=== PATIENT | female | born 1940 | race Caucasian/White ===

== ENCOUNTER 2017-01-18 08:17 | Inpatient (IN) | payer OTHER ==
[2016-12-20 13:16] VITALS: BMI 34.0
--- NOTE | 2016-12-20 13:55 | PAT Medication Instructions ---
Service Date Dec 20, 2016. Current Home Medication List Acetaminophen (Tylenol), 1 TAB PO Q8 PRN for prn Aspirin (Aspirin), 325 MG PO QAM Carvedilol (Coreg), 25 MG PO BID Clonidine Hcl (Catapres), 1 TAB PO BID Hydrochlorothiazide (Hctz), 25 MG PO BID Lisinopril (Zestril), 10 MG PO QAM Multivitamin (Multivitamin), 1 TAB PO QAM Medication Instructions For Your Scheduled Surgery - Check with surgeon for instructions: Aspirin (Aspirin), 325 MG PO QAM - Hold the following medications the morning of surgery: Hydrochlorothiazide (Hctz), 25 MG PO BID Lisinopril (Zestril), 10 MG PO QAM Multivitamin (Multivitamin), 1 TAB PO QAM - Take the following medications the morning of surgery with a sip of water: Clonidine Hcl (Catapres), 1 TAB PO BID Carvedilol (Coreg), 25 MG PO BID Acetaminophen (Tylenol), 1 TAB PO Q8 PRN for prn (if needed) - Take the following medications as scheduled the night before surgery: Hydrochlorothiazide (Hctz), 25 MG PO BID Clonidine Hcl (Catapres), 1 TAB PO BID Carvedilol (Coreg), 25 MG PO BID Acetaminophen (Tylenol), 1 TAB PO Q8 PRN for prn (if needed) If you have any questions please call us at [phone] or [phone] or [phone]
[2016-12-20 14:43] LABS: BASO % 0.6 %; BASO ABS # 0.04 K/uL (0-0.2); COMPLETE YES; EOS % 1.7 %; HEMATOCRIT 36.7 % (37-47); IG% 0.1 %; LYMPH % 28.7 %; LYMPH ABS # 2.05 K/uL (1.2-3.4); MEAN CELL VOLUME 87.4 fL (80-100); MEAN CORPUSCULAR HEMOGLOBIN 27.9 pg (25-34); MEAN CORPUSCULAR HGB CONC 31.9 g/dl (32-36); MEAN PLATELET VOLUME 10.8 fL (7.4-10.4); MONO % 12.6 %; NEUT % 56.3 %; PLATELET COUNT 241 K/uL (130-400); WHITE BLOOD COUNT 7.14 K/uL (4.8-10.8)
--- NOTE | 2016-12-20 14:50 | DIAGNOSTIC IMAGING REPORT ---
CHEST PREADMISSION(PA/LAT) HISTORY:76 yearsFemalepreoperative exam. COMPARISON: None available. TECHNIQUE: Frontal and lateral views of the chest. FINDINGS: Cardiac silhouette is enlarged. Note is made of pectus excavatum deformity. There is atherosclerosis of the aorta. No pneumothorax, large pleural effusion or overt pulmonary edema. No focal airspace consolidation. Advanced degenerative changes are seen involving the shoulders. There is increased kyphotic curvature of the thoracic spine. IMPRESSION: Cardiomegaly without overt pulmonary edema or acute cardiopulmonary process. The above report was generated using voice recognition software. It may contain grammatical, syntax or spelling errors. Electronically signed by: Grabiel Bauer 12/20/2016 2:49 PM Dictated Date/Time: 12/20/2016 2:47 PM
[2016-12-20 14:58] LABS: ESTIMATED AVERAGE GLUCOSE 114 mg/dl; HA1C FLAG Normal (Normal); PROTHROMBIN TIME (PATIENT) 10.7 SECONDS (9.0-12.0)
--- NOTE | 2016-12-20 15:52 | History and Physical ---
History & Physical Date Dec 20, 2016. Chief Complaint Left Knee Pain History of Present Illness Left Knee pain Ms Ward is a 76 year old female who complains of knee pain on the left greater than the right. She presents with pain, crepitus and decreased rom on the left greater than the right. She states that the symptoms have been chronic non- traumatic. The symptoms occur constantly with intermittent worsening. The problem is worse. Currently the patient states that the symptoms are moderate- severe. The pain is described as aching and throbbing. The symptoms occur continuously. The symptoms are aggravated by daily activities, ascending stairs , descending stairs, weight bearing and walking. In addition to knee pain on the left greater than the right the patient is also experiencing decreased mobility, joint pain and limping. The patient has had a previous x-ray. She has had Ambulates with cane. Past Medical/Surgical History Hypertension No previous surgeries Additional History Hepatic Disease: No Endocrine Disorder: No Kidney Disease: No Hypertension: Yes Heart Disease: No Bleeding Tendencies: No Allergies Coded Allergies: Onion (Verified Allergy, Unknown, very sick, 12/20/16) Penicillins (Verified Allergy, Unknown, hives/nausea, 12/20/16) Home Medications Scheduled Aspirin (Aspirin), 325 MG PO QAM Carvedilol (Coreg), 25 MG PO BID Clonidine Hcl (Catapres), 1 TAB PO BID Hydrochlorothiazide (Hctz), 25 MG PO BID Lisinopril (Zestril), 10 MG PO QAM Multivitamin (Multivitamin), 1 TAB PO QAM Scheduled PRN Acetaminophen (Tylenol), 1 TAB PO Q8 PRN for prn Physical Examination Skin: warm/dry, no rash Eyes: normal inspection, EOMI, sclerae normal ENT: normal ENT inspection, pharynx normal Head: normocephalic, atraumatic Respiratory/Chest: lungs clear, normal breath sounds, no respiratory distress Cardiovascular: regular rate, rhythm, no edema, no murmur Addiitonal Comments: Knee ROM L * Active ROM - Flexion: 125 degrees, Extension: 5 degrees, Factors: pain, Description: active painful range of motion. Passive ROM - Flexion: 125 degrees, Extension: 5 degrees, Factors: pain, Description: passive painful range of motion. Active ROM - Flexion: 125 degrees, Extension: 5 degrees, Factors: pain, Description: active painful range of motion. Passive ROM - Flexion: 125 degrees, Extension: 5 degrees, Factors: pain, Description: passive painful range of motion. Knee ROM R * Active ROM - Flexion: 135 degrees, Extension: 0 degrees, Factors: pain, Description: active painful range of motion. Passive ROM - Flexion: 135 degrees, Extension: 0 degrees, Factors: pain, Description: passive painful range of motion. Active ROM - Flexion: 135 degrees, Extension: 0 degrees, Factors: pain, Description: active painful range of motion. Passive ROM - Flexion: 135 degrees, Extension: 0 degrees, Factors: pain, Description: passive painful range of motion. Strength LE Normal Strength Description - Normal lower extremity: Bilateral. Knee * Inspection - Gait: antalgic. Alignment - Right: varus, Left: varus. Ecchymosis - Right: negative, Left: negative. Effusion - Right: mild, Left: mild. Swelling - Right: mild, Left: mild. Inspection - Gait: antalgic. Alignment - Right: varus, Left: varus. Ecchymosis - Right: negative, Left: negative. Effusion - Right: mild, Left: mild. Swelling - Right: mild, Left: mild. Flexibility - Right: normal, Left: normal. Maximum tenderness - Right: medial joint line, lateral joint line, patella, Left: medial joint line, lateral joint line, patella. Flexibility - Right: normal, Left: normal. Maximum tenderness - Right: medial joint line, lateral joint line, patella, Left: medial joint line, lateral joint line, patella. Patella exam - Crepitation - Right: mild, Left: mild. Patella position - Right: neutral, Left: neutral. Tilt - Right: equal, Left: equal. Patella exam - Crepitation - Right: mild, Left: mild. Patella position - Right: neutral, Left: neutral. Tilt - Right: equal, Left: equal. Jen's - lateral - Right: Positive, Left: Positive. [facility]'s - medial - Right: Positive, Left: Positive. [facility]'s - lateral - Right: Positive, Left: Positive. [facility]'s - medial - Right: Positive, Left: Positive. Knee Comments No calf tenderness Knee Normal Inspection - Atrophy - Right: Absent, Left: Absent. Skin - Right: Normal, Left: Normal. Inspection - Atrophy - Right: Absent, Left: Absent. Skin - Right: Normal, Left: Normal. Patella exam - Apprehension - Right: Negative, Left: Negative. Q-angle - Right: Normal, Left: Normal. Patella exam - Apprehension - Right: Negative, Left: Negative. Q-angle - Right: Normal, Left: Normal. Seth's - Right: Negative, Left: Negative. Posterior drawer - Right: Negative, Left: Negative. Anterior drawer - Right: Negative, Left: Negative. Valgus stress - Right: Negative, Left: Negative. Varus stress - Right: Negative , Left: Negative. Extensor lag - Right: Normal, Left: Normal. Seth's - Right : Negative, Left: Negative. Posterior drawer - Right: Negative, Left: Negative. Anterior drawer - Right: Negative, Left: Negative. Valgus stress - Right: Negative, Left: Negative. Varus stress - Right: Negative, Left: Negative. Extensor lag - Right: Normal, Left: Normal. Neurovascular LE Normal Neurovascular examination including reflexes, sensation , and pulses is within normal limits. Left Knee X-Ray Xrays reviewed of the left knee showing findings consistent with degenerative joint disease including joint space narrowing, subchondral sclerosis and peripheral osteophyte formation. no acute bony pathology, overall varus alignment. Impression: degenerative joint disease of the left knee with no acute bony pathology noted. Diagnosis Left Knee Osteoarthritis -Further care discussed with patient and at this point in time has failed conservative measures and would like to proceed with a left total knee replacement. Plan on discharge will be home with outpatient physical therapy. DVT prophalaxis with TEDs, SCDs and will also place on aspirin 81 mg p.o. b.i.d. for a month postop. Patient will have follow up appointment in our office two weeks post op for staple/suture removal and re-evaluation. Patient otherwise has no other questions or concerns.
[2016-12-20 15:55] LABS: BUN/CREATININE RATIO 22.2 (10-20); CALCIUM 9.4 mg/dl (8.5-10.1); CREATININE 0.99 mg/dl (0.60-1.20); POTASSIUM 3.8 mmol/L (3.5-5.1)
[~2017-01-18] VITALS: Ht 162.6 cm; Wt 89.6 kg
[2017-01-18] VITALS (11 sets, daily range): BP systolic 123–176; BP diastolic 67–91; PULSE 56–83; TEMP 36–37; O2SAT 94–97; Ht 162.6 cm; Wt 89.6 kg
--- NOTE | 2017-01-18 06:58 | History & Physical Bridge Note ---
H&P Re-Evaluation Bridge Note: I have examined the patient, reviewed the History & Physical and in the interval since the performance of the History & Physical I have noted the following changes of clinical significance: No changes noted
[~2017-01-18 08:17] MED LIST: ACET-1256 PO; ACETAMINOPHEN 500 MG TAB PO SCH; ASPI325T4 PO; ATROPINE SULFATE 0.1 MG/ML 5ML SYR IV PRN; BUPIVACAINE 0.25% 30 ML VIAL ONE; BUPIVACAINE 0.5 % 5 MG/1 ML PF 10ML VIAL ONE; CARV25TA2 PO; CLINDAMYCIN 600 MG/54 ML D5W 54 ML IV SCH; CLON0.1T12 PO; CeleBREX 200 MG CAP PO SCH; DEXAMETHASONE 4 MG TAB PO SCH; EpHEDrine SULFATE INJ 50 MG/ML AMP IV PRN; FAMOTIDINE 20 MG TAB PO SCH; FENTANYL CITRATE INJ 50 MCG/1 ML 2 ML VIAL IV PRN; GABAPENTIN 300 MG CAP PO SCH; HYDR25TA4 PO; LACTATED RINGER'S 1000ML 1,000 ML IV SCH; LACTATED RINGER'S 1000ML 500 ML IV ONE; LACTATED RINGER'S 1000ML IV SCH; LISI-461 PO; METOCLOPRAMIDE HCL 10 MG TAB PO SCH; MULT-506 PO; ONDANSETRON INJ 2 MG/ML 2 ML VIAL IV PRN; ROPIVACAINE 5MG/ML 30 ML 150 MG, BUPIVACAINE/EPINEPHR 0.5% MPF 30 ML, KETOROLAC TROMETH... INFIL SCH
[2017-01-18] MEDS ORDERED: FENTANYL CITRATE INJ 50 MCG/1 ML 2 ML VIAL ONE (09:14)
[2017-01-18] MEDS ORDERED: MIDAZOLAM HCL 1 MG/ML 2ML VIAL ONE ×2 (09:14)
[2017-01-18] MEDS ORDERED: BACITRACIN 50000 UNIT VIAL ONE (09:53)
[2017-01-18] MEDS ORDERED: POVIDONE-IODINE OP SOLN 30 ML BTL ONE (09:53)
[2017-01-18] MEDS ORDERED: ORTHO JOINT ANESTHETIC ONE (09:53)
[2017-01-18] MEDS ORDERED: PROPOFOL IV EMULSION 10 MG/ML 20 ML VIAL IV ONE (10:49)
[2017-01-18] MEDS ORDERED: LIDOCAINE HCL 2% 2 ML VIAL (20MG/ML) ONE (10:49)
--- NOTE | 2017-01-18 11:54 | [facility] Operative Report ---
Operative Report Operative Date Jan 18, 2017. Pre-Operative Diagnosis Left Knee Degenerative Joint Disease Post-Operative Diagnosis Same as Preop Procedure(s) Performed Left Total Knee Arthroplasty utilizing [employer] journey 2 patient matched total knee arthroplasty size 4 femur to tibia 13 Meka 32 oval patella surgeon Brooks Gonzalez was necessary for prepping draping retraction wound closure defect is subcutaneous and skin Surgeon Dr. Guy Electric Razor Assembler Surgeon(s) Rd Gonzalez PA-C Estimated Blood Loss 5 ml Findings Severe end-stage tricompartmental degenerative joint disease with varus alignment Specimens A. Left Knee Bone and Tissue Complication(s) None Disposition Recovery Room / PACU Indications Severe end-stage DJD with varus alignment left knee Description of Procedure After proper prepping and draping of the left lower extremity anterior midline incision was made over the region of the extensor extensor mechanism after meticulous hemostasis was obtained and maintained in subcutaneous tissues a medial parapatellar incision was made The patella was subluxed lateralward the medial lateral gutter were cleaned from any hypertrophic synovitis and scar tissue of the distal femoral block was placed and the distal femoral osteotomy cut was made subsequently the chamfers anterior and posterior osteotomy cuts were made utilizing the 4-in-1 block the tibia was subsequently subluxed anteriorward medial and ateral meniscal remnants were excised in their entirety remnants of the anterior and posterior cruciate ligaments were excised in their entirety excellent exposure of the proximal tibia was obtained the tibial osteotomy guide was placed on the proximal tibial osteotomy cut was made once again the knee was irrigated with copious amounts of sterile saline solution the patella was subsequently everted lateralward thickened scar tissue around the patella was removed the patella was subsequently cut utilizing a freehand technique and was drilled prepared for final preparation and placement of patella socially flexion-extension gaps were checked and the equal and symmetric trials were placed to the appropriate femoral and tibial trials with poly-spacer being placed for equal flexion and extension gaps and full range of motion including extension to 0 and flexion to 140 the trial components after having been taken to recovery range of motion was subsequently removed meticulous hemostasis was obtained and maintained subsequently a knee block injection of joint cocktail including ropivacaine 0.5% 150 mg. Bupivacaine 0.5 % epinephrine 1-200,030 mL's toradol 30 mg dexamethasone 4 mg ketamine 10 mg clonidine 100 micrograms normal saline solution 30 mg was infiltrated into the soft tissues of the posterior knee medial lateral gutters and periosteal synovium special attention was paid to protect neurovascular structures at all times subsequently trial components having been removed the knee was irrigated with sterile saline solution. debris was removed the proximal tibia was subsequently prepared and was made ready for the placement of the tibial component tibial component was also cemented and tamped into position the femoral component was subsequently placed and cemented in the position the patellar component was subsequently cemented in position because hemostasis once again obtained and maintained wound having been thoroughly irrigated with debridement and debridement lavage was performed as well as a medial parapatellar incision closed with #1 Vicryl in interrupted fashion subcutaneous was closed with #2 Vicryl skin was closed with skin clips. PA-C was necessary for prepping and drapping as well as wound closure of deep fascia Sub cutaneous tissue and skin and was necessary for the case. A sterile compressive dressing was placed patient was taken to recovery in stable condition of report dictated by Brooks I attest to the content of the Intraoperative Record and any orders documented therein. Any exceptions are noted below. I attest to the content of the Intraoperative Record and any orders documented therein. Any exceptions are noted below.
[2017-01-18] MEDS ORDERED: ALUMINUM/MAGNESIUM/SIMETH (MAALOX MAX) 30 ML UDC PO PRN (12:30)
[2017-01-18] MEDS ORDERED: ONDANSETRON INJ 2 MG/ML 2 ML VIAL IV PRN (12:30)
[2017-01-18] MEDS ORDERED: BISACODYL 10 MG SUPP PR PRN (12:30)
[2017-01-18] MEDS ORDERED: SOD PHOSPHATE/SOD BIPHOSPHATE ENEMA 132 ML BTL PR PRN (12:30)
[2017-01-18] MEDS ORDERED: MAGNESIUM HYDROXIDE SUSP 30 ML UDC PO PRN (12:30)
[2017-01-18] MEDS ORDERED: OXYCODONE HCL IR 5 MG TAB (IMMEDIATE RELEASE) PO PRN (12:30)
[2017-01-18] MEDS ORDERED: KETOROLAC TROMETHAMINE 15 MG/ML VIAL IV. PRN (12:30)
[2017-01-18] MEDS ORDERED: MoRPHine SULFATE 2 MG/ML CARP IV PRN (12:30)
[2017-01-18] MEDS ORDERED: NURSING VERBAL MED ORDER ONE ×3 (12:45→13:30)
[2017-01-18] MEDS ORDERED: LABETALOL HCL IV 5 MG/ML 20ML IV ONE ×2 (12:47→13:08)
[2017-01-18] MEDS ORDERED: MoRPHine SULFATE 10 MG/ML CARP/VIAL IV PRN (13:00)
[2017-01-18] MEDS ORDERED: ATROPINE SULFATE 0.1 MG/ML 5ML SYR IV PRN (13:00)
[2017-01-18] MEDS ORDERED: LABETALOL HCL IV 5 MG/ML 20ML IV PRN (13:00)
[2017-01-18] MEDS ORDERED: EpHEDrine SULFATE INJ 50 MG/ML AMP IV PRN (13:00)
[2017-01-18] MEDS ORDERED: MoRPHine SULFATE 4 MG/ML 1 ML CARP\\VIAL IV PRN (13:00)
--- NOTE | 2017-01-18 13:08 | DIAGNOSTIC IMAGING REPORT ---
LEFT KNEE 1 OR 2 VIEWS ROUTINE CLINICAL HISTORY: Postoperative evaluation. COMPARISON: None FINDINGS: Alignment of the total left knee arthroplasty is anatomic. There is no fracture or unexpected radiopaque foreign body. Drains and skin marino are present. IMPRESSION: Expected findings following total left knee arthroplasty. Electronically signed by: Hardik Goddard M.D. 01/18/2017 1:06 PM Dictated Date/Time: 01/18/2017 1:06 PM
[2017-01-18] MEDS ORDERED: HydrALAZINE HCL 20 MG/ML VIAL ONE (13:24)
[2017-01-18] MEDS ORDERED: LABETALOL HCL IV 5 MG/ML 20ML IV STA (13:28)
--- NOTE | 2017-01-18 14:03 | Anesthesiology Progress Note ---
Anesthesia Post Op Note Date & Time Jan 18, 2017 at 14:00 Vital Signs Pain Intensity: 0 Vital Signs Past 12 Hours Date Time Temp Pulse Resp B/P (MAP) Pulse Ox O2 Delivery O2 Flow Rate FiO2 01/18/17 13:40 68 14 156/72 97 Oxymask 2 01/18/17 13:30 62 16 160/78 98 Oxymask 2 01/18/17 13:20 60 16 192/86 98 Oxymask 2 01/18/17 13:10 52 16 190/88 98 Oxymask 2 01/18/17 13:00 36.1 64 16 203/99 98 Oxymask 2 01/18/17 12:50 64 16 198/101 99 Oxymask 3 01/18/17 12:40 65 16 224/110 99 Oxymask 3 01/18/17 12:30 63 16 184/88 99 Oxymask 5 01/18/17 12:21 36.5 63 16 166/80 99 Oxymask 10 01/18/17 08:46 36.0 59 20 97 Room Air Notes Mental Status: alert / awake / arousable, participated in evaluation Pt Amnestic to Procedure: Yes Nausea / Vomiting: adequately controlled Pain: adequately controlled Airway Patency, RR, SpO2: stable & adequate BP & HR: stable & adequate Hydration State: stable & adequate Neuraxial Anesthesia: was administered, sensory block is resolving Anesthetic Complications: no major complications apparent Ms. Ward has known difficult to control BP. She is on quadruple therapy and appropriately took her meds before surgery (held her diuretics). Patient was asymptomatic but hypertensive preoperatively but after she was slightly sedated and during the case with SAB and sedation SBP's were 150's. In recovery room, her BP's increased to low 200's systolic but again asymptomatic. She was treated with labetalol and hydralazine with BP back into 150-160 range. I decided to consult hospitalist to assist orthopedics with BP control while she was an inpatient. Spoke briefly with hospitalist on-call and he said his team would see patient on floor, which I felt it was best to be telemetry. Surgeon's team (LARRY) was made aware of the consult and agreed with plan. All questions answered.
[2017-01-18] MEDS: D5W AND 1/2NSS + 20MEQ KCL 1,000 ML IV SCH (16:53)
--- NOTE | 2017-01-18 17:21 | Progress Note ---
Subjective Date of Service: Jan 18, 2017. Subjective Pt evaluation today including: conversation w/ patient, conversation w/ family , physical exam, chart review, lab review, review of inpatient medication list asked to see for HTN post op TKA - notes she was nervous because this was her first surgery ever. notes otherwise she feels fine. not much knee pain, no chest pain no sob. only took her coreg this AM. Review of Systems all other ROS otherwise negative except for as above Objective Vital Signs Date Time Temp Pulse Resp B/P (MAP) Pulse Ox O2 Delivery O2 Flow Rate FiO2 01/18/17 17:06 83 154/80 (104) 97 Nasal Cannula 01/18/17 15:30 36.3 80 14 141/72 96 Oxymask 2 01/18/17 15:15 72 14 126/66 96 Oxymask 2 01/18/17 15:15 37.0 80 176/81 (112) 95 Nasal Cannula 2.0 01/18/17 15:00 73 14 138/64 96 Oxymask 2 01/18/17 14:45 73 14 131/71 96 Oxymask 2 01/18/17 14:30 72 14 126/63 96 Oxymask 2 01/18/17 14:15 76 14 153/77 97 Oxymask 2 01/18/17 14:00 72 14 157/76 97 Oxymask 2 01/18/17 13:50 70 14 156/75 97 Oxymask 2 01/18/17 13:40 68 14 156/72 97 Oxymask 2 01/18/17 13:30 62 16 160/78 98 Oxymask 2 01/18/17 13:20 60 16 192/86 98 Oxymask 2 01/18/17 13:10 52 16 190/88 98 Oxymask 2 01/18/17 13:00 36.1 64 16 203/99 98 Oxymask 2 01/18/17 12:50 64 16 198/101 99 Oxymask 3 01/18/17 12:40 65 16 224/110 99 Oxymask 3 01/18/17 12:30 63 16 184/88 99 Oxymask 5 01/18/17 12:21 36.5 63 16 166/80 99 Oxymask 10 01/18/17 08:46 36.0 59 20 97 Room Air Physical Exam General Appearance: no apparent distress Eyes: EOMI ENT: hearing grossly normal Neck: trachea midline Respiratory/Chest: no respiratory distress, no accessory muscle use Extremities: + pertinent finding (L knee dressed, wrapped, iced) Neurologic/Psychiatric: engineering clerk II-XII nml as tested, alert, normal mood/affect Skin: normal color, warm/dry Assessment and Plan HTN -briefly uncontrolled but also didn't take all her meds that she normally takes , and notes was nervous -right now reasonable control given circumstances -coreg and clonidine have been ordered, agree w this, as long as hemodynamically remains stable, and Cr OK in AM - then can resume ACEi and diuretic by tomorrow -will continue to follow
[2017-01-18] MEDS: CLINDAMYCIN IV 600 MG in DEXTROSE 5% 50ML 50 ML IV SCH (17:44)
[2017-01-18] MEDS: OXYCODONE HCL 10 MG TABCR (OXYCONTIN) PO SCH (21:19)
[2017-01-18] MEDS: DOCUSATE SODIUM 100 MG CAP PO SCH (21:20)
[2017-01-18] MEDS: CARVEDILOL 25 MG TAB PO SCH (21:20)
[2017-01-18] MEDS: CLONIDINE HCL 0.1 MG TAB PO SCH (21:20)
[2017-01-18] MEDS: ASPIRIN 325 MG ECTAB PO SCH (21:21)
[2017-01-18] MEDS: SENNA 8.6 MG TAB PO SCH (21:21)
[2017-01-18] MEDS: ACETAMINOPHEN 500 MG TAB PO SCH (21:22)
[2017-01-18 21:35] LABS: URINE APPEARANCE CLOUDY (CLEAR); URINE BILIRUBIN NEG (NEG); URINE COLOR YELLOW; URINE EPITHELIAL CELL AUTO 20-30 /lpf (0-5); URINE NITRITE POS (NEG); URINE SPECIFIC GRAVITY 1.017 (1.000-1.030); UROBILINOGEN NEG (NEG)
[2017-01-18 21:36] LABS: MANUAL MICROSCOPIC REQUIRED? NO; REVIEW REQ? NO
[2017-01-19] VITALS (7 sets, daily range): BP systolic 149–186; BP diastolic 66–89; PULSE 55–85; TEMP 36.4–36.7; O2SAT 92–96
[2017-01-19] MEDS: CLINDAMYCIN IV 600 MG in DEXTROSE 5% 50ML 50 ML IV SCH (02:00)
[2017-01-19] MEDS: D5W AND 1/2NSS + 20MEQ KCL 1,000 ML IV SCH (02:00)
[2017-01-19] MEDS: ACETAMINOPHEN 500 MG TAB PO SCH ×3 (05:43→21:57)
[2017-01-19 07:12] LABS: HEMATOCRIT 26.7 % (37-47); MEAN CELL VOLUME 87.5 fL (80-100); MEAN CORPUSCULAR HEMOGLOBIN 28.5 pg (25-34); MEAN CORPUSCULAR HGB CONC 32.6 g/dl (32-36); MEAN PLATELET VOLUME 11.1 fL (7.4-10.4); PLATELET COUNT 168 K/uL (130-400); RED BLOOD COUNT 3.05 M/uL (4.2-5.4); WHITE BLOOD COUNT 16.38 K/uL (4.8-10.8)
[2017-01-19 07:25] LABS: INR 1.1 (0.9-1.1); PROTHROMBIN TIME (PATIENT) 11.5 SECONDS (9.0-12.0)
[2017-01-19 07:39] LABS: BUN/CREATININE RATIO 23.3 (10-20); CALCIUM 8.2 mg/dl (8.5-10.1); CREATININE 1.4 mg/dl (0.60-1.20); POTASSIUM 4.1 mmol/L (3.5-5.1)
--- NOTE | 2017-01-19 07:40 | Orthopedic Progress Note ---
Orthopedic Progress Note Date of Service Jan 19, 2017. Subjective Post OP Day: 1 (Left TKA) Reports: feeling well, pain controlled w PO medications, Denies: complaints, chest pain, SOB, nausea / vomiting, light headedness, calf pain Objective calves soft nontender, N/V intact, capillary refill less than 2 sec., dressing C /D/I, A&O x3, toes mobile, hemovac drainage (200cc / 8 hours) Date Time Temp Pulse Resp B/P (MAP) Pulse Ox O2 Delivery O2 Flow Rate FiO2 01/19/17 07:32 36.4 55 18 186/81 (116) 95 Room Air 01/19/17 04:00 Room Air 01/19/17 03:44 36.4 55 18 149/72 (97) 94 Room Air 01/18/17 23:59 Room Air 01/18/17 23:43 36.3 56 16 131/72 (91) 94 Room Air 01/18/17 21:11 81 129/74 (92) 01/18/17 20:00 Room Air 01/18/17 19:21 36.8 79 21 126/71 (89) 97 Nasal Cannula 2.0 01/18/17 18:00 36.7 83 20 123/67 (85) 97 Room Air 01/18/17 17:30 36.7 82 20 148/76 (100) 96 Room Air 01/18/17 17:06 83 154/80 (104) 97 Nasal Cannula 01/18/17 17:00 36.6 83 20 158/79 (105) 97 Room Air 01/18/17 16:30 36.5 79 21 172/91 (118) 96 Room Air 01/18/17 15:50 97 Nasal Cannula 2.0 01/18/17 15:50 Nasal Cannula 2.0 01/18/17 15:30 36.3 80 14 141/72 96 Oxymask 2 01/18/17 15:15 72 14 126/66 96 Oxymask 2 01/18/17 15:15 37.0 80 176/81 (112) 95 Nasal Cannula 2.0 01/18/17 15:00 73 14 138/64 96 Oxymask 2 01/18/17 14:45 73 14 131/71 96 Oxymask 2 01/18/17 14:30 72 14 126/63 96 Oxymask 2 01/18/17 14:15 76 14 153/77 97 Oxymask 2 01/18/17 14:00 72 14 157/76 97 Oxymask 2 01/18/17 13:50 70 14 156/75 97 Oxymask 2 01/18/17 13:40 68 14 156/72 97 Oxymask 2 01/18/17 13:30 62 16 160/78 98 Oxymask 2 01/18/17 13:20 60 16 192/86 98 Oxymask 2 01/18/17 13:10 52 16 190/88 98 Oxymask 2 01/18/17 13:00 36.1 64 16 203/99 98 Oxymask 2 01/18/17 12:50 64 16 198/101 99 Oxymask 3 01/18/17 12:40 65 16 224/110 99 Oxymask 3 01/18/17 12:30 63 16 184/88 99 Oxymask 5 01/18/17 12:21 36.5 63 16 166/80 99 Oxymask 10 01/18/17 08:46 36.0 59 20 97 Room Air Laboratory Results 24 Hours: Test 01/19/17 06:12 Hematocrit 26.7 % Hemoglobin 8.7 g/dL Prothromb Time International Ratio 1.1 Prothrombin Time 11.5 SECONDS Assessment & Plan Assessment: POD #1 s/p Left TKA -PT/OT -dvt proph with JOSELO/SCD/ASA -plan for d/c home with OPPT in [place] when stable, will transfer to floor when medically stable HTN -briefly uncontrolled, medicine consulted. currently on coreg and clonidine, will resume ACEi and diuretic this am if Cr stable per medicine. Discharge Planning Discharge Planning: home with oppt DVT Prophylaxis: TEDs, SCDs, ASA Therapy: Physical Therapy
--- NOTE | 2017-01-19 07:57 | Anesthesiology Progress Note ---
Anesthesia Post Op Note Date & Time Jan 19, 2017 at 07:57 Vital Signs Pain Intensity: 0.0 Vital Signs Past 12 Hours Date Time Temp Pulse Resp B/P (MAP) Pulse Ox O2 Delivery O2 Flow Rate FiO2 01/19/17 07:32 36.4 55 18 186/81 (116) 95 Room Air 01/19/17 04:00 Room Air 01/19/17 03:44 36.4 55 18 149/72 (97) 94 Room Air 01/18/17 23:59 Room Air 01/18/17 23:43 36.3 56 16 131/72 (91) 94 Room Air 01/18/17 21:11 81 129/74 (92) 01/18/17 20:00 Room Air Notes Mental Status: alert / awake / arousable Pt Amnestic to Procedure: Yes Nausea / Vomiting: adequately controlled Pain: adequately controlled Airway Patency, RR, SpO2: stable & adequate BP & HR: stable & adequate Hydration State: stable & adequate Neuraxial Anesthesia: sensory block resolved Anesthetic Complications: no major complications apparent
[2017-01-19] MEDS ORDERED: HydrALAZINE HCL 20 MG/ML VIAL IV. PRN (08:15)
[2017-01-19] MEDS: CARVEDILOL 25 MG TAB PO SCH ×2 (09:00→21:07)
[2017-01-19] MEDS: OXYCODONE HCL 10 MG TABCR (OXYCONTIN) PO SCH ×2 (09:03→21:08)
[2017-01-19] MEDS: CLONIDINE HCL 0.1 MG TAB PO SCH ×2 (09:03→21:08)
[2017-01-19] MEDS: DOCUSATE SODIUM 100 MG CAP PO SCH ×2 (09:03→21:08)
[2017-01-19] MEDS: PANTOprazole SOD 40 MG TAB PO SCH (09:04)
[2017-01-19] MEDS: ASPIRIN 325 MG ECTAB PO SCH ×2 (09:04→21:06)
[2017-01-19] MEDS: MULTIVITAMIN TAB PO SCH (09:04)
[2017-01-19] MEDS ORDERED: CLONIDINE HCL 0.1 MG TAB PO ONE (12:45)
[2017-01-19] MEDS ORDERED: SODIUM CHLORIDE 0.9% 1000ML 1,000 ML IV SCH (12:45)
--- NOTE | 2017-01-19 13:24 | Hospitalist Progress Note ---
Hospitalist Progress Note Date of Service Jan 19, 2017. Subjective Pt evaluation today including: conversation w/ patient, conversation w/ family , physical exam, chart review, lab review, review of studies, review of inpatient medication list Patient seen and evaluated. Verbalizes no needs or complaints at this time. Looks comfortable and is visiting with family. Cr bumped to 1.4 which baseline is unknown given limited records. Will continue to hold Lisinopril and HCTZ. Hydralazine PRN BPs improved yesterday but is elevating to 180 systolically. Constitutional: No fever, No chills Eyes: No worsening of vision Respiratory: No cough, No shortness of breath Cardiovascular: No chest pain, No palpitations Abdomen: No pain, No nausea, No vomiting Female : No dysuria Medications Current Inpatient Medications Medications (Trade) Dose Ordered Sig/Agatha Route Start Time Stop Time Status Last Admin Dose Admin Celecoxib (CeleBREX CAP) 200 mg BID PO 01/19/17 21:00 02/18/17 20:59 Oxycodone HCl (Roxicodone Immediate Rel Tab) 1 TABLET FOR PAIN RATING... Q4H PRN PO 01/18/17 12:30 02/01/17 12:29 Oxycodone HCl (Oxycontin Tab) 10 mg Q12 PO 01/18/17 21:00 02/01/17 20:59 01/19/17 09:03 10 MG Acetaminophen (Tylenol Tab) 1,000 mg Q8 PO 01/18/17 22:00 02/17/17 21:59 01/19/17 05:43 1,000 MG Magnesium Hydroxide (Milk Of Magnesia Susp) 30 ml Q6H PRN PO 01/18/17 12:30 02/17/17 12:29 Bisacodyl (Dulcolax Supp) 10 mg DAILY PRN MI 01/18/17 12:30 02/17/17 12:29 Sodium Biphosphate/ Sodium Phosphate (Fleet Enema) 132 ml DAILY PRN MI 01/18/17 12:30 02/17/17 12:29 Senna (Senokot Tab) 17.2 mg HS PO 01/18/17 21:00 02/17/17 20:59 01/18/17 21:21 17.2 MG Docusate Sodium (coLACE CAP) 100 mg BID PO 01/18/17 21:00 02/17/17 20:59 01/19/17 09:03 100 MG Diphenhydramine HCl (Benadryl Cap) 25 mg Q8H PRN PO 01/18/17 12:30 02/17/17 12:29 Al Hydrox/Mg Hydrox/Simethicone (Maalox Max Susp) 15 ml Q4H PRN PO 01/18/17 12:30 02/17/17 12:29 Multivitamins (Multivitamin Tab) 1 tab QAM PO 01/19/17 09:00 02/18/17 08:59 01/19/17 09:04 1 TAB Ondansetron HCl (Zofran Inj) 4 mg Q6H PRN IV 01/18/17 12:30 02/17/17 12:29 01/19/17 09:15 4 MG Pantoprazole Sodium (Protonix Tab) 40 mg QAM PO 01/19/17 09:00 02/18/17 08:59 01/19/17 09:04 40 MG Aspirin (Ecotrin Tab) 325 mg BID PO 01/18/17 21:00 02/17/17 20:59 01/19/17 09:04 325 MG Ketorolac Tromethamine (Toradol Inj) 15 mg Q6H PRN IV. 01/18/17 12:30 01/20/17 12:29 Carvedilol (Coreg Tab) 25 mg BID PO 01/18/17 21:00 02/17/17 20:59 01/18/17 21:20 25 MG Clonidine HCl (Catapres Tab) 0.1 mg BID PO 01/18/17 21:00 02/17/17 20:59 01/19/17 09:03 0.1 MG Morphine Sulfate (MoRPHine SULFATE INJ) 2 mg Q4HWA PRN IV 01/18/17 12:30 02/01/17 12:29 Morphine Sulfate (MoRPHine SULFATE INJ) 4 mg Q4HWA PRN IV 01/18/17 13:00 02/01/17 12:59 Morphine Sulfate (MoRPHine SULFATE INJ) 6 mg Q4HWA PRN IV 01/18/17 13:00 02/01/17 12:59 Hydralazine HCl (HydrALAZINE INJ) 10 mg Q6 PRN IV. 8/9/17 08:15 02/18/17 08:14 01/19/17 12:12 10 MG Sodium Chloride 1,000 ml @ 50 mls/hr Q20H IV 01/19/17 12:45 01/20/17 08:44 Objective Vital Signs Date Time Temp Pulse Resp B/P (MAP) Pulse Ox O2 Delivery O2 Flow Rate FiO2 01/19/17 12:00 Room Air 01/19/17 11:11 36.4 57 18 180/71 (107) 96 Room Air 01/19/17 08:00 Room Air 01/19/17 07:32 36.4 55 18 186/81 (116) 95 Room Air 01/19/17 04:00 Room Air 01/19/17 03:44 36.4 55 18 149/72 (97) 94 Room Air 01/18/17 23:59 Room Air 01/18/17 23:43 36.3 56 16 131/72 (91) 94 Room Air 01/18/17 21:11 81 129/74 (92) 01/18/17 20:00 Room Air 01/18/17 19:21 36.8 79 21 126/71 (89) 97 Nasal Cannula 2.0 01/18/17 18:00 36.7 83 20 123/67 (85) 97 Room Air 01/18/17 17:30 36.7 82 20 148/76 (100) 96 Room Air 01/18/17 17:06 83 154/80 (104) 97 Nasal Cannula 01/18/17 17:00 36.6 83 20 158/79 (105) 97 Room Air 01/18/17 16:30 36.5 79 21 172/91 (118) 96 Room Air 01/18/17 15:50 97 Nasal Cannula 2.0 01/18/17 15:50 Nasal Cannula 2.0 01/18/17 15:30 36.3 80 14 141/72 96 Oxymask 2 01/18/17 15:15 72 14 126/66 96 Oxymask 2 01/18/17 15:15 37.0 80 176/81 (112) 95 Nasal Cannula 2.0 01/18/17 15:00 73 14 138/64 96 Oxymask 2 01/18/17 14:45 73 14 131/71 96 Oxymask 2 01/18/17 14:30 72 14 126/63 96 Oxymask 2 01/18/17 14:15 76 14 153/77 97 Oxymask 2 01/18/17 14:00 72 14 157/76 97 Oxymask 2 01/18/17 13:50 70 14 156/75 97 Oxymask 2 01/18/17 13:40 68 14 156/72 97 Oxymask 2 01/18/17 13:30 62 16 160/78 98 Oxymask 2 01/18/17 13:20 60 16 192/86 98 Oxymask 2 Physical Exam General Appearance: WD/WN, no apparent distress Eyes: sclerae normal ENT: hearing grossly normal Neck: supple, no JVD, trachea midline Respiratory/Chest: lungs clear, normal breath sounds, no respiratory distress, no accessory muscle use Cardiovascular: regular rate, rhythm, no gallop, no murmur Abdomen: normal bowel sounds, non tender, soft Neurologic/Psychiatric: alert, oriented x 3 Skin: normal color, warm/dry Laboratory Results Last 24 Hours Test 01/19/17 06:12 White Blood Count 16.38 K/uL Red Blood Count 3.05 M/uL Hemoglobin 8.7 g/dL Hematocrit 26.7 % Mean Corpuscular Volume 87.5 fL Mean Corpuscular Hemoglobin 28.5 pg Mean Corpuscular Hemoglobin Concent 32.6 g/dl RDW Standard Deviation 47.2 fL RDW Coefficient of Variation 14.7 % Platelet Count 168 K/uL Mean Platelet Volume 11.1 fL Prothrombin Time 11.5 SECONDS Prothromb Time International Ratio 1.1 Sodium Level 143 mmol/L Potassium Level 4.1 mmol/L Chloride Level 110 mmol/L Carbon Dioxide Level 28 mmol/L Anion Gap 5.0 mmol/L Blood Urea Nitrogen 33 mg/dl Creatinine 1.40 mg/dl Est Creatinine Clear Calc Drug Dose 36.5 ml/min Estimated GFR () 41.9 Estimated GFR (Non- 36.2 BUN/Creatinine Ratio 23.3 Random Glucose 185 mg/dl Calcium Level 8.2 mg/dl Assessment and Plan Ms. Ward is a 76 y/o with PMHx of HTN who is S/P L TKA S/P L TKA by Dr. Guy: - Pain management, PT/OT, DVT prophylaxis per primary team - DVT - ASA 325 mg BID HTN: - Improved yesterday but elevating today - not reporting much pain but reported some anxiety yesterday - however looks comfortable today and surrounded by family - Coreg 25 mg BID and Clonidine 0.1 mg BID with PRN Hydralazine - Hold Lisinopril and HCTZ due to mildly elevated Cr Elevated Cr: - Unknown baseline due to limited records - hydrate today and obtain BMP in AM - continue to hold Lisinopril and HCTZ Disposition: - Pending improved Cr on tomorrow labs - hopefully can reinstitute all home medications - Given multi-drug regimen, if she hasn't had work-up for secondary HTN this could be pursued as outpatient per PCP
--- NOTE | 2017-01-19 17:43 | Discharge Instructions ---
Discharge Instructions Date of Service Jan 19, 2017. Admission Reason for Admission: Left Knee Osteoarthritis Discharge Discharge Diagnosis / Problem: left total knee replacement Discharge Goals Goal(s): Decrease discomfort, Improve function, Increase independence Activity Recommendations Activity Limitations: as noted below Weightbearing Status: Left weightbearing (as tolerated) . Instructions / Follow-Up Instructions / Follow-Up ACTIVITY RECOMMENDATIONS: SELF CARE INSTRUCTIONS AFTER TOTAL KNEE REPLACEMENT A. You may need to continue a physical therapy program after discharge from the hospital. There are several options available to you. Your doctor will assist you in selecting the best one for you. 1. An out-patient facility 2 to 3 times a week for therapy or home therapy. 2. Continue working on all exercises taught to you in the hospital. Your goals should be to increase bending of your knee to 90 degrees and beyond and to fully straighten your knee. B. You may progress at your own pace from walking with a walker or crutches to a cane; then to no assistive devices. C. Make walking a part of your daily routine. Be up as much as comfortable with rest periods throughout the day. Rest with leg elevation is very important. Use the ice wrap frequently for the first 3-4 weeks. D. There are no restrictions on activities. You may ride in a car, shop, participate in grain shoveler and all social activities. E. Wear the long elastic stockings (JOSELO hose) 20 hours a day for 2 weeks after surgery. They can be removed several times a day for laundering and for a bath. F. You may shower, no tub baths until cleared by your doctor. SPECIAL CARE INSTRUCTIONS: VERY IMPORTANT TO READ AND REVIEW A. There are a few signs you need to watch for after you are home. Call [facility] if you notice any of the followin. Increased severe knee pain. Some pain is expected especially when you exercise. 2. Increased swelling in your leg or knee; pain or swelling of the calf muscle in either lower leg. 3. Any fluid drainage from the incision. 4. Shortness of breath or chest pain. B. Please call [facility] at if you have any concerns or questions about your operation or recovery. The doctor or his nurse will return your call promptly. C. You must take antibiotics before dental work, bladder, bowel or other surgery. Your doctor will provide you with a permanent care to carry describing this precaution. IMPORTANT: * REMEMBER TO TAKE ASPIRIN, 81 MG, TWICE DAILY FOR 4 WEEKS UNLESS OTHERWISE DIRECTED. THIS IS YOUR BLOOD THINNER. * HIGH RISK PATIENTS MAY BE PRESCRIBED A STRONGER BLOOD THINNER. THIS WILL BE PROVIDED AT DISCHARGE. * CALL IF INCREASED PAIN, REDNESS, DRAINAGE OR FEVER GREATER THAT 101. * WEAR JOSELO HOSE 20 HOURS PER DAY FOR 2 WEEKS. * YOU MAY HAVE A LARGE BAND-AID LIKE DRESSING (SILVERON). THIS WILL REMAIN ON YOUR INCISION FOR 7 DAYS, THEN CAN BE REMOVED. IF INCISION IS LEAKING THROUGH DRESSING, CALL THE OFFICE . FOLLOW UP VISIT: If appointment is not already scheduled: Please call [facility] to make a follow-up appointment for 2 weeks after your surgery at . Current Hospital Diet Patient's current hospital diet: Regular Diet Discharge Diet Recommended Diet: Regular Diet Procedures Procedures Performed: Left Total Knee Arthroplasty utilizing [employer]o [employer] Nephew journey 2 patient matched total knee arthroplasty size 4 femur to tibia 13 Meka 32 oval patella surgeon Brooks Gonzalez was necessary for prepping draping retraction wound closure defect is subcutaneous and skin Pending Studies Studies pending at discharge: no Laboratory Results Hemoglobin A1c Test 12/20/16 14:05 Range/Units Estimated Average Glucose 114 mg/dl Hemoglobin A1c 5.6 4.5-5.6 % Medical Emergencies . Who to Call and When: Medical Emergencies: If at any time you feel your situation is an emergency, please call 911 immediately. . Non-Emergent Contact Non-Emergency issues call your: Primary Care Provider . "Provider Documentation" section prepared by Rd Gonzalez. . VTE Core Measure Inpt VTE Proph given/why not?: Other Anticoagulation (ASA 81mg po bid x 1 month ), T.E.DMariaelena Zambrano, SCD's [place] Drug Monitoring Program Search Results: patient reviewed within database, no issues identified
[2017-01-19] MEDS: CeleBREX 200 MG CAP PO SCH (21:06)
[2017-01-19] MEDS: SENNA 8.6 MG TAB PO SCH (21:47)
[2017-01-20] MEDS: ACETAMINOPHEN 500 MG TAB PO SCH ×2 (06:00→13:37)
[2017-01-20 06:57] LABS: BUN/CREATININE RATIO 26.5 (10-20); CALCIUM 7.9 mg/dl (8.5-10.1); CREATININE 1.3 mg/dl (0.60-1.20); POTASSIUM 4.1 mmol/L (3.5-5.1)
--- NOTE | 2017-01-20 07:30 | Orthopedic Progress Note ---
Orthopedic Progress Note Date of Service Jan 20, 2017. Subjective Post OP Day: 2 Reports: feeling well, pain controlled w PO medications, Denies: complaints, chest pain, SOB, nausea / vomiting, light headedness, calf pain Additional Notes: episode of nausea yesterday am which has resolved. feels it was related to her medication and not eating with it. Objective calves soft nontender, N/V intact, capillary refill less than 2 sec., dressing C /D/I, A&O x3, toes mobile Date Time Temp Pulse Resp B/P (MAP) Pulse Ox O2 Delivery O2 Flow Rate FiO2 01/19/17 23:45 Room Air 01/19/17 23:00 36.7 85 18 152/66 (94) 92 Room Air 01/19/17 21:03 165/89 (114) 01/19/17 15:45 Room Air 01/19/17 15:45 Room Air 01/19/17 15:21 36.5 64 18 156/68 (97) 92 Room Air 01/19/17 14:20 36.5 62 18 149/70 (96) 94 Room Air 01/19/17 12:00 Room Air 01/19/17 11:11 36.4 57 18 180/71 (107) 96 Room Air 01/19/17 08:00 Room Air 01/19/17 07:32 36.4 55 18 186/81 (116) 95 Room Air Assessment & Plan Assessment: POD #2 s/p Left TKA -PT/OT -dvt proph with JOSELO/SCD/ASA -plan for d/c home with OPPT in [place] when stable, likely after PT today. HTN -briefly uncontrolled, medicine consulted. currently on coreg and clonidine, will resume ACEi and diuretic this am if Cr stable per medicine. Discharge Planning Discharge Planning: home with oppt DVT Prophylaxis: TEDs, SCDs, ASA Therapy: Physical Therapy
[2017-01-20] MEDS ORDERED: RXC5 PO (07:32)
[2017-01-20] MEDS ORDERED: ACET-24 PO (07:32)
[2017-01-20] MEDS ORDERED: ASPEC325 PO (07:32)
[2017-01-20] MEDS ORDERED: OXYSR10 PO (07:32)
[2017-01-20] MEDS ORDERED: ONDA8TAB6 PO (07:32)
[2017-01-20] MEDS ORDERED: CLB200 PO (07:32)
[2017-01-20] MEDS ORDERED: CLC100 PO (07:32)
--- NOTE | 2017-01-20 07:41 | Discharge Summary ---
Orthopedic Discharge Summary Admission Date/Reason Jan 18, 2017 at 12:29 Left Knee Osteoarthritis. Discharge Date/Disposition Jan 20, 2017 Home Diagnosis Principal Diagnosis: Left knee osteoarthritis Secondary Diagnoses/Problems: Hypertension Procedure(s) Performed Left Total Knee Arthroplasty utilizing Haro [employer] Nephew eddieney 2 patient matched total knee arthroplasty size 4 femur to tibia 13 Meka [address] Lu- medical management, post-op hypertension Medication Reconciliation New Medications: Ondansetron Hcl (Zofran) 8 Mg Tab 8 MG PO Q8 PRN for Nausea, #20 TAB Acetaminophen (Sb Non-Aspirin Extra Stre) 500 Mg Tab 1000 MG PO Q8, #126 TAB Aspirin (Aspirin) 325 Mg Ectab 325 MG PO BID for 30 Days, #60 TAB Celecoxib (Celebrex) 200 Mg Cap 200 MG PO BID for 30 Days, #60 CAP Docusate Sodium (Docusate Sodium) 100 Mg Cap 100 MG PO BID for 10 Days, #20 CAP Oxycodone HCl (Oxycontin) 10 Mg Tabcr 10 MG PO Q12, #20 Oxycodone HCl (Oxycodone HCl) 5 Mg Tab 5-10 MG PO Q4H PRN for Pain, #60 TAB Continued Medications: Carvedilol (Coreg) 25 Mg Tab 25 MG PO BID, TAB Clonidine Hcl (Catapres) 0.1 Mg Tab 1 TAB PO BID for 90 Days, #180 TAB 3 Refills Hydrochlorothiazide (Hctz) 25 Mg Tab 25 MG PO BID, TAB Lisinopril (Zestril) 10 Mg Tab 10 MG PO QAM, TAB Multivitamin (Multivitamin) Tab 1 TAB PO QAM, TAB Discontinued Medications: Acetaminophen (Tylenol) 500 Mg Tab 1 TAB PO Q8 PRN for prn for 3 Days, #10 TAB Aspirin (Aspirin) 325 Mg Tab 325 MG PO QAM, TAB Admission Physical Exam As per Admitting History & Physical. Hospital Course Patient was a same day admission after undergoing a successful Left TKA. she tolerated the procedure well. Post-operatively, her activity was progressed and well tolerated. She had one episode of nausea on am of POD#1 which has improved , she feels was related to not eating while taking her medications. Please refer to daily progress notes and PT notes for complete details. After exam on , patient felt to be stable for discharge home with OPPT. Patient will f/ u in the office in 2 weeks for further evaluation including x-rays and incision check, sooner if having any issues or concerns. Below are pertinent labs/ studies during their hospital stay: Last Vital Signs Documentation Date Time Temp Pulse Resp B/P (MAP) Pulse Ox O2 Delivery O2 Flow Rate FiO2 01/19/17 23:45 Room Air 01/19/17 23:00 36.7 85 18 152/66 (94) 92 01/18/17 19:21 2.0 Last Resulted CBC 01/19/17 06:12 Last Resulted BMP 01/20/17 05:43 Discharge Instructions ACTIVITY RECOMMENDATIONS: SELF CARE INSTRUCTIONS AFTER TOTAL KNEE REPLACEMENT A. You may need to continue a physical therapy program after discharge from the hospital. There are several options available to you. Your doctor will assist you in selecting the best one for you. 1. An out-patient facility 2 to 3 times a week for therapy or home therapy. 2. Continue working on all exercises taught to you in the hospital. Your goals should be to increase bending of your knee to 90 degrees and beyond and to fully straighten your knee. B. You may progress at your own pace from walking with a walker or crutches to a cane; then to no assistive devices. C. Make walking a part of your daily routine. Be up as much as comfortable with rest periods throughout the day. Rest with leg elevation is very important. Use the ice wrap frequently for the first 3-4 weeks. D. There are no restrictions on activities. You may ride in a car, shop, participate in windows vmware administrator and all social activities. E. Wear the long elastic stockings (JOSELO hose) 20 hours a day for 2 weeks after surgery. They can be removed several times a day for laundering and for a bath. F. You may shower, no tub baths until cleared by your doctor. SPECIAL CARE INSTRUCTIONS: VERY IMPORTANT TO READ AND REVIEW A. There are a few signs you need to watch for after you are home. Call [facility] if you notice any of the followin. Increased severe knee pain. Some pain is expected especially when you exercise. 2. Increased swelling in your leg or knee; pain or swelling of the calf muscle in either lower leg. 3. Any fluid drainage from the incision. 4. Shortness of breath or chest pain. B. Please call [facility] at if you have any concerns or questions about your operation or recovery. The doctor or his nurse will return your call promptly. C. You must take antibiotics before dental work, bladder, bowel or other surgery. Your doctor will provide you with a permanent care to carry describing this precaution. IMPORTANT: * REMEMBER TO TAKE ASPIRIN, 81 MG, TWICE DAILY FOR 4 WEEKS UNLESS OTHERWISE DIRECTED. THIS IS YOUR BLOOD THINNER. * HIGH RISK PATIENTS MAY BE PRESCRIBED A STRONGER BLOOD THINNER. THIS WILL BE PROVIDED AT DISCHARGE. * CALL IF INCREASED PAIN, REDNESS, DRAINAGE OR FEVER GREATER THAT 101. * WEAR JOSELO HOSE 20 HOURS PER DAY FOR 2 WEEKS. * YOU MAY HAVE A LARGE BAND-AID LIKE DRESSING (SILVERON). THIS WILL REMAIN ON YOUR INCISION FOR 7 DAYS, THEN CAN BE REMOVED. IF INCISION IS LEAKING THROUGH DRESSING, CALL THE OFFICE . FOLLOW UP VISIT: If appointment is not already scheduled: Please call [facility] to make a follow-up appointment for 2 weeks after your surgery at .
[2017-01-20 07:47] VITALS: BP 168/74; PULSE 70; TEMP 36.7; O2SAT 92
[2017-01-20] MEDS: MULTIVITAMIN TAB PO SCH (09:07)
[2017-01-20] MEDS: PANTOprazole SOD 40 MG TAB PO SCH (09:07)
[2017-01-20] MEDS: OXYCODONE HCL 10 MG TABCR (OXYCONTIN) PO SCH (09:07)
[2017-01-20] MEDS: CARVEDILOL 25 MG TAB PO SCH (09:08)
[2017-01-20 09:14] VITALS: O2SAT 92
[2017-01-20] MEDS: ASPIRIN 325 MG ECTAB PO SCH (09:40)
[2017-01-20] MEDS: CeleBREX 200 MG CAP PO SCH (09:41)
[2017-01-20] MEDS: CLONIDINE HCL 0.1 MG TAB PO SCH (09:41)
[2017-01-20] MEDS: DOCUSATE SODIUM 100 MG CAP PO SCH (09:41)
[2017-01-20 10:18] VITALS: BP 168/74; PULSE 70; TEMP 36.7; O2SAT 92
--- NOTE | 2017-01-20 13:52 | Hospitalist Progress Note ---
Hospitalist Progress Note Date of Service Jan 20, 2017. Subjective Pt evaluation today including: conversation w/ patient, conversation w/ family , physical exam, chart review, lab review, review of studies, review of inpatient medication list Patient seen and evaluated. Due to be discharged today. Verbalized no complaints. Pain is well controlled and ambulating adequately. Blood pressure with better control and Cr improving. Baseline Cr is unknown due to limited records. Instructed patient to continue her HCTZ and Lisinopril starting tomorrow. UA with 4+ bacteria and UCx with E. coli but patient without urinary symptoms or fever/chills. Does have a leukocytosis but likely reactive as she didn't upon arrival. No need for treatment at this time. Did have emesis yesterday but reporting no issues today. Constitutional: No fever, No chills Respiratory: No shortness of breath Cardiovascular: No chest pain Abdomen: No pain, No nausea, No vomiting, No diarrhea, No constipation Musculoskeletal: No swelling, No calf pain Female : No dysuria, No urinary frequency, No hematuria Neurologic: No numbness/tingling Medications Current Inpatient Medications Medications (Trade) Dose Ordered Sig/Agatha Route Start Time Stop Time Status Last Admin Dose Admin Celecoxib (CeleBREX CAP) 200 mg BID PO 01/19/17 21:00 02/18/17 20:59 01/20/17 09:41 200 MG Oxycodone HCl (Roxicodone Immediate Rel Tab) 1 TABLET FOR PAIN RATING... Q4H PRN PO 01/18/17 12:30 02/01/17 12:29 Oxycodone HCl (Oxycontin Tab) 10 mg Q12 PO 01/18/17 21:00 02/01/17 20:59 01/20/17 09:07 10 MG Acetaminophen (Tylenol Tab) 1,000 mg Q8 PO 01/18/17 22:00 02/17/17 21:59 01/20/17 13:37 1,000 MG Magnesium Hydroxide (Milk Of Magnesia Susp) 30 ml Q6H PRN PO 01/18/17 12:30 02/17/17 12:29 Bisacodyl (Dulcolax Supp) 10 mg DAILY PRN SD 01/18/17 12:30 02/17/17 12:29 Sodium Biphosphate/ Sodium Phosphate (Fleet Enema) 132 ml DAILY PRN SD 01/18/17 12:30 02/17/17 12:29 Senna (Senokot Tab) 17.2 mg HS PO 01/18/17 21:00 02/17/17 20:59 01/19/17 21:47 17.2 MG Docusate Sodium (coLACE CAP) 100 mg BID PO 01/18/17 21:00 02/17/17 20:59 01/20/17 09:41 100 MG Diphenhydramine HCl (Benadryl Cap) 25 mg Q8H PRN PO 01/18/17 12:30 02/17/17 12:29 Al Hydrox/Mg Hydrox/Simethicone (Maalox Max Susp) 15 ml Q4H PRN PO 01/18/17 12:30 02/17/17 12:29 Multivitamins (Multivitamin Tab) 1 tab QAM PO 01/19/17 09:00 02/18/17 08:59 01/20/17 09:07 1 TAB Ondansetron HCl (Zofran Inj) 4 mg Q6H PRN IV 01/18/17 12:30 02/17/17 12:29 01/19/17 09:15 4 MG Pantoprazole Sodium (Protonix Tab) 40 mg QAM PO 01/19/17 09:00 02/18/17 08:59 01/20/17 09:07 40 MG Aspirin (Ecotrin Tab) 325 mg BID PO 01/18/17 21:00 02/17/17 20:59 01/20/17 09:40 325 MG Carvedilol (Coreg Tab) 25 mg BID PO 01/18/17 21:00 02/17/17 20:59 01/20/17 09:08 25 MG Clonidine HCl (Catapres Tab) 0.1 mg BID PO 01/18/17 21:00 02/17/17 20:59 01/20/17 09:41 0.1 MG Morphine Sulfate (MoRPHine SULFATE INJ) 2 mg Q4HWA PRN IV 01/18/17 12:30 02/01/17 12:29 Morphine Sulfate (MoRPHine SULFATE INJ) 4 mg Q4HWA PRN IV 01/18/17 13:00 02/01/17 12:59 Morphine Sulfate (MoRPHine SULFATE INJ) 6 mg Q4HWA PRN IV 01/18/17 13:00 02/01/17 12:59 Hydralazine HCl (HydrALAZINE INJ) 10 mg Q6 PRN IV. 01/19/17 08:15 02/18/17 08:14 01/19/17 12:12 10 MG Objective Vital Signs Date Time Temp Pulse Resp B/P (MAP) Pulse Ox O2 Delivery O2 Flow Rate FiO2 01/20/17 10:18 36.7 70 16 92 Room Air 01/20/17 09:14 92 Room Air 01/20/17 07:47 36.7 70 16 168/74 (105) 92 Room Air 01/20/17 07:30 Room Air 01/19/17 23:45 Room Air 01/19/17 23:00 36.7 85 18 152/66 (94) 92 Room Air 01/19/17 21:03 165/89 (114) 01/19/17 15:45 Room Air 01/19/17 15:45 Room Air 01/19/17 15:21 36.5 64 18 156/68 (97) 92 Room Air 01/19/17 14:20 36.5 62 18 149/70 (96) 94 Room Air Physical Exam General Appearance: WD/WN, no apparent distress Eyes: sclerae normal ENT: hearing grossly normal Neck: supple, no JVD, trachea midline Respiratory/Chest: lungs clear, normal breath sounds, no respiratory distress, no accessory muscle use Cardiovascular: regular rate, rhythm, no gallop, no murmur Abdomen: normal bowel sounds, non tender, soft Extremities: no pedal edema, + pertinent finding (dressing applied to L knee that is clean/dry/intact) Neurologic/Psychiatric: alert, oriented x 3 Skin: normal color, warm/dry Laboratory Results Last 24 Hours Test 01/20/17 05:43 Sodium Level 145 mmol/L Potassium Level 4.1 mmol/L Chloride Level 112 mmol/L Carbon Dioxide Level 27 mmol/L Anion Gap 6.0 mmol/L Blood Urea Nitrogen 35 mg/dl Creatinine 1.30 mg/dl Est Creatinine Clear Calc Drug Dose 39.3 ml/min Estimated GFR () 45.8 Estimated GFR (Non- 39.5 BUN/Creatinine Ratio 26.5 Random Glucose 156 mg/dl Calcium Level 7.9 mg/dl Magnesium Level 2.0 mg/dl Assessment and Plan Ms. Ward is a 76 y/o with PMHx of HTN who is S/P L TKA S/P L TKA by Dr. Guy: - Pain management, PT/OT, DVT prophylaxis per primary team - DVT - ASA 325 mg BID HTN: - Improved but suspect will have better control once full home regimen started - Coreg 25 mg BID and Clonidine 0.1 mg BID with PRN Hydralazine - Lisinopril and HCTZ can be resumed tomorrow Elevated Cr: - Unknown baseline due to limited records - can resume home medications starting tomorrow Disposition: - Given multi-drug regimen, if she hasn't had work-up for secondary HTN this could be pursued as outpatient per PCP Discharge planning: home with home health
[2017-02-28] MEDS ORDERED: ACET-1256 PO (07:49)
[2017-02-28] MEDS ORDERED: CTP/1 PO (08:02)
== END 2017-01-20 14:12 | disposition home or self-care (01) | DRG 470 ==
LOC: C.ACU 08:17 → C.2T 12:29 → ENRESERV 12:50 → CANRESERV 12:50 → EDBEDREQSVC 13:29 → EDBEDREQ 13:29 → ENRESERV 14:39 → C.MSW 01-19 14:11
PROVIDERS: ADMIT Orthopaedic Surgery; ATTEND Orthopaedic Surgery
PROC: 0SRD0J9 Replacement of Left Knee Joint with Synthetic Substitute, Cemented, Open Approach (ICD-10-PCS; principal; 2017-01-18 10:15)
DX: M17.12 Unilateral primary osteoarthritis, left knee (principal); N17.9 Acute kidney failure, unspecified; I10 Essential (primary) hypertension; Z79.82 Long term (current) use of aspirin; Z79.899 Other long term (current) drug therapy; Z88.0 Allergy status to penicillin

== ENCOUNTER 2017-03-16 08:14 | Inpatient (IN) | payer OTHER ==
[2017-02-28 07:51] VITALS: BMI 32.0
--- NOTE | 2017-03-01 19:49 | History and Physical ---
History & Physical Date of Service Mar 01, 2017. History & Physical Date of Surgery: 03/16/17 Chief Complaint Right Knee Pain History of Present Illness Right Knee pain Ms Ward is a 76 year old female who complains of Right knee pain. She presents with pain, crepitus and decreased rom. She states that the symptoms have been chronic non-traumatic. The symptoms occur constantly with intermittent worsening. The problem is worse. Currently the patient states that the symptoms are moderate-severe. The pain is described as aching and throbbing. The symptoms occur continuously. The symptoms are aggravated by daily activities, ascending stairs, descending stairs, weight bearing and walking. She is also experiencing decreased mobility, joint pain and limping. The patient has had a previous x-ray. She has had Ambulates with cane. She underwent Left TKA earlier this year and is doing well. Past Medical/Surgical History Hypertension Left TKA 2016 Additional History Hepatic Disease: No Endocrine Disorder: No Kidney Disease: No Hypertension: Yes Heart Disease: No Bleeding Tendencies: No Allergies Coded Allergies: Onion (Verified Allergy, Unknown, very sick, 12/20/16) Penicillins (Verified Allergy, Unknown, hives/nausea, 12/20/16) Home Medications Scheduled Aspirin (Aspirin), 325 MG PO QAM Carvedilol (Coreg), 25 MG PO BID Clonidine Hcl (Catapres), 1 TAB PO BID Hydrochlorothiazide (Hctz), 25 MG PO BID Lisinopril (Zestril), 10 MG PO QAM Multivitamin (Multivitamin), 1 TAB PO QAM Scheduled PRN Acetaminophen (Tylenol), 1 TAB PO Q8 PRN for prn Physical Examination Skin: warm/dry, no rash Eyes: normal inspection, EOMI, sclerae normal ENT: normal ENT inspection, pharynx normal Head: normocephalic, atraumatic Respiratory/Chest: lungs clear, normal breath sounds, no respiratory distress Cardiovascular: regular rate, rhythm, no edema, no murmur Addiitonal Comments: Knee ROM L * Active ROM - Flexion: 125 degrees, Extension: 0 degrees, Factors: pain, Description: active painful range of motion. Passive ROM - Flexion: 125 degrees, Extension: 0 degrees, Factors: pain, Description: passive painful range of motion. Active ROM - Flexion: 125 degrees, Extension: 0 degrees, Factors: pain, Description: active painful range of motion. Passive ROM - Flexion: 125 degrees, Extension: 0 degrees, Factors: pain, Description: passive painful range of motion. Knee ROM R * Active ROM - Flexion: 120 degrees, Extension: 5 degrees, Factors: pain, Description: active painful range of motion. Passive ROM - Flexion: 120 degrees, Extension: 5 degrees, Factors: pain, Description: passive painful range of motion. Active ROM - Flexion: 120 degrees, Extension: 5 degrees, Factors: pain, Description: active painful range of motion. Passive ROM - Flexion: 120 degrees, Extension: 5 degrees, Factors: pain, Description: passive painful range of motion. Strength LE Normal Strength Description - Normal lower extremity: Bilateral. Knee * Inspection - Gait: antalgic. Alignment - Right: varus, Left: normal. Ecchymosis - Right: negative, Left: negative. Effusion - Right: mild, positive crepitation with motion, diffuse tenderness, ligamentously stable. Knee Comments No calf tenderness Knee Normal Inspection - Atrophy - Right: Absent, Left: Absent. Skin - Right: Normal, Left: Normal. Inspection - Atrophy - Right: Absent, Left: Absent. Skin - Right: Normal, Left: Normal. Patella exam - Apprehension - Right: Negative, Left: Negative. Q-angle - Right: Normal, Left: Normal. Patella exam - Apprehension - Right: Negative, Left: Negative. Q-angle - Right: Normal, Left: Normal. Seth's - Right: Negative, Left: Negative. Posterior drawer - Right: Negative, Left: Negative. Anterior drawer - Right: Negative, Left: Negative. Valgus stress - Right: Negative, Left: Negative. Varus stress - Right: Negative , Left: Negative. Extensor lag - Right: Normal, Left: Normal. Seth's - Right : Negative, Left: Negative. Posterior drawer - Right: Negative, Left: Negative. Anterior drawer - Right: Negative, Left: Negative. Valgus stress - Right: Negative, Left: Negative. Varus stress - Right: Negative, Left: Negative. Extensor lag - Right: Normal, Left: Normal. Neurovascular LE Normal Neurovascular examination including reflexes, sensation , and pulses is within normal limits. Right Knee X-Ray Xrays reviewed of the Right knee showing findings consistent with degenerative joint disease including joint space narrowing, subchondral sclerosis and peripheral osteophyte formation. no acute bony pathology, overall varus alignment. Impression: degenerative joint disease of the Right knee with no acute bony pathology noted. Diagnosis Right Knee Osteoarthritis -Further care discussed with patient and at this point in time has failed conservative measures and would like to proceed with a Right total knee replacement. Plan on discharge will be home with outpatient physical therapy. DVT prophalaxis with TEDs, SCDs and will also place on aspirin 81 mg p.o. b.i.d. for a month postop. Patient will have follow up appointment in our office two weeks post op for staple/suture removal and re-evaluation. Patient otherwise has no other questions or concerns.
[2017-03-16] VITALS (7 sets, daily range): BP systolic 135–208; BP diastolic 54–87; PULSE 55–77; TEMP 36.4–36.9; O2SAT 92–99; Ht 162.6 cm; Wt 85.5 kg
[~2017-03-16] VITALS: Ht 162.6 cm; Wt 85.5 kg
[2017-03-16] MEDS: LACTATED RINGER'S 1000ML 500 ML IV ONE ×2 (08:10→09:10)
[~2017-03-16 08:14] MED LIST changes: +ASPEC325 PO; -ASPI325T4 PO; -ATROPINE SULFATE 0.1 MG/ML 5ML SYR IV PRN; -CLINDAMYCIN 600 MG/54 ML D5W 54 ML IV SCH; -CLON0.1T12 PO; +CTP/1 PO; -EpHEDrine SULFATE INJ 50 MG/ML AMP IV PRN; -FENTANYL CITRATE INJ 50 MCG/1 ML 2 ML VIAL IV PRN; -LACTATED RINGER'S 1000ML 500 ML IV ONE; +ONDA8TAB6 PO; -ONDANSETRON INJ 2 MG/ML 2 ML VIAL IV PRN; +VANCOMYCIN INJ 1,250 MG in SODIUM CHLORIDE 0.9% 250ML 250 ML IV SCH
[2017-03-16] MEDS ORDERED: MIDAZOLAM HCL 1 MG/ML 2ML VIAL ONE (08:37)
[2017-03-16] MEDS ORDERED: FENTANYL CITRATE INJ 50 MCG/1 ML 2 ML VIAL ONE (08:37)
[2017-03-16] MEDS ORDERED: FERR50TA3 PO (09:23)
[2017-03-16] MEDS ORDERED: BACITRACIN 50000 UNIT VIAL ONE (10:02)
[2017-03-16] MEDS ORDERED: POVIDONE-IODINE OP SOLN 30 ML BTL ONE (10:02)
[2017-03-16] MEDS ORDERED: ORTHO JOINT ANESTHETIC ONE (10:02)
[2017-03-16] MEDS ORDERED: KETOROLAC TROMETHAMINE 15 MG/ML VIAL IV. PRN (10:45)
[2017-03-16] MEDS ORDERED: ONDANSETRON INJ 2 MG/ML 2 ML VIAL IV PRN ×2 (10:45→12:15)
[2017-03-16] MEDS ORDERED: EpHEDrine SULFATE INJ 50 MG/ML AMP IV PRN (10:45)
[2017-03-16] MEDS ORDERED: HYDROmorphone INJ 2 MG/ML SYR/VIAL IV PRN (10:45)
[2017-03-16] MEDS ORDERED: ATROPINE SULFATE 0.1 MG/ML 5ML SYR IV PRN (10:45)
[2017-03-16] MEDS ORDERED: PHENYLEPHRINE 100MCG/ML 5ML SYR IV PRN (10:45)
--- NOTE | 2017-03-16 11:29 | [facility] Operative Report ---
Operative Report Operative Date Mar 16, 2017. Pre-Operative Diagnosis Right Knee Degenerative Joint Disease Post-Operative Diagnosis Same as preop Procedure(s) Performed Right Total Knee Arthroplasty utilizing [employer] journey 2 patient matched total knee arthroplasty size 3 femur 3 tibia 12 [place] [address] Guy Configuration Management Architect Surgeon(s) Andrea Hedrick PA-C Estimated Blood Loss 5 ml Findings Patient presents with severe end-stage tricompartmental degenerative joint disease varus alignment medial osteophytes subchondral sclerosis and cystic changes for total knee arthroplasty after failing attempts at conservative management Specimens A. Right Knee Bone and Tissue Complication(s) None Disposition Recovery Room / PACU Indications Patient presents after failing times a conservative management including injections corticosteroid injections viscous supplementations anti- inflammatories relative rest activity modifications patient presents with severe end-stage tricompartmental degenerative joint disease for total knee arthroplasty postoperative pain management DVT prophylaxis antibiotics Description of Procedure After proper prepping and draping of the Right lower extremity anterior midline incision was made over the region of the extensor extensor mechanism after meticulous hemostasis was obtained and maintained in subcutaneous tissues a medial parapatellar incision was made The patella was subluxed lateralward the medial lateral gutter were cleaned from any hypertrophic synovitis and scar tissue of the distal femoral block was placed and the distal femoral osteotomy cut was made subsequently the chamfers anterior and posterior osteotomy cuts were made utilizing the 4-in-1 block the tibia was subsequently subluxed anteriorward medial and ateral meniscal remnants were excised in their entirety remnants of the anterior and posterior cruciate ligaments were excised in their entirety excellent exposure of the proximal tibia was obtained the tibial osteotomy guide was placed on the proximal tibial osteotomy cut was made once again the knee was irrigated with copious amounts of sterile saline solution the patella was subsequently everted lateralward thickened scar tissue around the patella was removed the patella was subsequently cut utilizing a freehand technique and was drilled prepared for final preparation and placement of patella socially flexion-extension gaps were checked and the equal and symmetric trials were placed to the appropriate femoral and tibial trials with poly-spacer being placed for equal flexion and extension gaps and full range of motion including extension to 0 and flexion to 140 the trial components after having been taken to recovery range of motion was subsequently removed meticulous hemostasis was obtained and maintained subsequently a knee block injection of joint cocktail including ropivacaine 0.5% 150 mg. Bupivacaine 0.5 % epinephrine 1-200,030 mL's toradol 30 mg dexamethasone 4 mg ketamine 10 mg clonidine 100 micrograms normal saline solution 30 mg was infiltrated into the soft tissues of the posterior knee medial lateral gutters and periosteal synovium special attention was paid to protect neurovascular structures at all times subsequently trial components having been removed the knee was irrigated with sterile saline solution. debris was removed the proximal tibia was subsequently prepared and was made ready for the placement of the tibial component tibial component was also cemented and tamped into position the femoral component was subsequently placed and cemented in the position the patellar component was subsequently cemented in position because hemostasis once again obtained and maintained wound having been thoroughly irrigated with debridement and debridement lavage was performed as well as a medial parapatellar incision closed with #1 Vicryl in interrupted fashion subcutaneous was closed with #2 Vicryl skin was closed with skin clips. PA-C was necessary for prepping and drapping as well as wound closure of deep fascia Sub cutaneous tissue and skin and was necessary for the case. A sterile compressive dressing was placed patient was taken to recovery in stable condition of report dictated by Brooks I attest to the content of the Intraoperative Record and any orders documented therein. Any exceptions are noted below. I attest to the content of the Intraoperative Record and any orders documented therein. Any exceptions are noted below.
[2017-03-16] MEDS ORDERED: PROPOFOL IV EMULSION 10 MG/ML 20 ML VIAL IV ONE (11:44)
[2017-03-16] MEDS ORDERED: LIDOCAINE HCL 2% 2 ML VIAL (20MG/ML) ONE (11:44)
[2017-03-16] MEDS ORDERED: TRAMADOL HCL 50 MG TAB PO PRN (12:15)
[2017-03-16] MEDS ORDERED: MoRPHine SULFATE 2 MG/ML CARP IV PRN (12:15)
[2017-03-16] MEDS ORDERED: OXYCODONE HCL IR 5 MG TAB (IMMEDIATE RELEASE) PO PRN (12:15)
[2017-03-16] MEDS ORDERED: MAGNESIUM HYDROXIDE SUSP 30 ML UDC PO PRN (12:15)
[2017-03-16] MEDS ORDERED: ALUMINUM/MAGNESIUM/SIMETH (MAALOX MAX) 30 ML UDC PO PRN (12:15)
[2017-03-16] MEDS ORDERED: BISACODYL 10 MG SUPP PR PRN (12:15)
[2017-03-16] MEDS ORDERED: MoRPHine SULFATE 4 MG/ML 1 ML CARP\\VIAL IV PRN (12:15)
[2017-03-16] MEDS ORDERED: LABETALOL HCL IV 5 MG/ML 20ML IV ONE ×2 (12:40→12:48)
[2017-03-16] MEDS ORDERED: LABETALOL HCL IV 5 MG/ML 20ML IV PRN (12:45)
--- NOTE | 2017-03-16 12:56 | DIAGNOSTIC IMAGING REPORT ---
RIGHT KNEE 2 VIEWS History: Right total knee arthroplasty. Degenerative arthritis. Postop. FINDINGS: The patient is status post a right total knee arthroplasty. The hardware is intact. No fracture or dislocation. Skin marino and surgical drains are in place. IMPRESSION: Right total knee arthroplasty. No evidence for hardware complication. Electronically signed by: Hang Means M.D. 03/16/2017 12:54 PM Dictated Date/Time: 03/16/2017 12:54 PM
--- NOTE | 2017-03-16 13:27 | Anesthesiology Progress Note ---
Anesthesia Post Op Note Date & Time Mar 16, 2017 at 13:27 Vital Signs Pain Intensity: 0 Vital Signs Past 12 Hours Date Time Temp Pulse Resp B/P (MAP) Pulse Ox O2 Delivery O2 Flow Rate FiO2 03/16/17 13:10 36.5 57 16 171/71 97 Nasal Cannula 2 03/16/17 13:00 36.5 56 16 169/74 97 Nasal Cannula 2 03/16/17 12:50 53 16 172/76 97 Nasal Cannula 2 03/16/17 12:40 65 16 186/80 97 Nasal Cannula 2 03/16/17 12:30 64 16 188/70 100 Nasal Cannula 2 03/16/17 12:20 66 16 180/78 100 Oxymask 10 03/16/17 12:10 66 16 189/82 99 Oxymask 10 03/16/17 12:01 37. 66 16 169/83 99 Oxymask 10 03/16/17 09:32 36.7 61 20 208/87 96 Room Air Notes Mental Status: alert / awake / arousable, participated in evaluation Pt Amnestic to Procedure: Yes Nausea / Vomiting: adequately controlled Pain: adequately controlled Airway Patency, RR, SpO2: stable & adequate BP & HR: stable & adequate Hydration State: stable & adequate Anesthetic Complications: no major complications apparent
[2017-03-16] MEDS: D5W AND 1/2NSS + 20MEQ KCL 1,000 ML IV SCH (14:52)
[2017-03-16] MEDS ORDERED: HydrALAZINE HCL 20 MG/ML VIAL ONE (15:24)
[2017-03-16] MEDS ORDERED: NURSING VERBAL MED ORDER ONE (15:30)
--- NOTE | 2017-03-16 15:39 | Medical Consult ---
Consultation Date of Consultation: Mar 16, 2017. Attending Physician: Edgar Guy D.O. Reason for Consultation: Medical management History of Present Illness This is a 76 y/o female with a history of HTN and iron deficiency anemia who presents s/p R TKA with Dr. Guy on 03/16 - we are consulted for medical management. Patient reports feeling well. She denies any pain, numbness or tingling. She is tolerating a PO diet. She has not yet urinated, passed gas or had a bowel movement postoperatively. The patient denies fevers, chills, sweats, chest pain, palpitations, claudication, cough, wheezing, shortness of breath, nausea, vomiting, abdominal pain, dysuria, hematuria, urinary retention , paralysis, weakness, numbness and tingling. Past Medical/Surgical History HTN YARA H/o L TKA Family History Patient reports no known family history Social History Smoking Status: Never Smoker Smokeless Tobacco Use: No Alcohol Use: none Drug Use: none Marital Status: Housing Status: lives with significant other Occupation Status: retired Allergies Coded Allergies: Onion (Verified Allergy, Unknown, very sick, 03/16/17) Penicillins (Verified Allergy, Unknown, hives/nausea, 03/16/17) Current Inpatient Medications Current Inpatient Medications Medications (Trade) Dose Ordered Sig/Agatha Route Start Time Stop Time Status Last Admin Dose Admin Acetaminophen (Tylenol Tab) 1,000 mg PREOP PO 03/16/17 06:00 03/16/17 18:00 03/16/17 09:48 1,000 MG Celecoxib (CeleBREX CAP) 200 mg PREOP PO 03/16/17 06:00 03/16/17 18:00 03/16/17 09:49 200 MG Dexamethasone (Decadron Tab) 8 mg PREOP PO 03/16/17 06:00 03/16/17 18:00 03/16/17 09:49 8 MG Famotidine (Pepcid Tab) 20 mg PREOP PO 03/16/17 06:00 03/16/17 18:00 03/16/17 09:48 20 MG Gabapentin (Neurontin Cap) 300 mg PREOP PO 03/16/17 06:00 03/16/17 18:00 03/16/17 09:48 300 MG Metoclopramide HCl (Reglan Tab) 10 mg PREOP PO 03/16/17 06:00 03/16/17 18:00 03/16/17 09:48 10 MG Vancomycin HCl 1250 mg/Sodium Chloride 275 ml @ 125 mls/hr PREOP IV 03/16/17 06:00 03/17/17 05:59 03/16/17 09:16 125 MLS/HR Ondansetron HCl (Zofran Inj) 4 mg ONE PRN IV 03/16/17 10:45 03/16/17 15:45 Atropine Sulfate (Atropine Sulfate 0.1MG/Ml Inj) 0.5 mg Q1M PRN IV 03/16/17 10:45 03/16/17 15:45 Ephedrine Sulfate (EpHEDrine SULFATE INJ) 5 mg Q5M PRN IV 03/16/17 10:45 03/16/17 15:45 Ketorolac Tromethamine (Toradol Inj) 15 mg ONE PRN IV. 03/16/17 10:45 03/16/17 15:45 Hydromorphone HCl (Dilaudid Inj) 0.25 mg Q5M PRN IV 03/16/17 10:45 03/16/17 15:45 Phenylephrine HCl (Ismael-Synephrine 500MCG/5ML Syr) 100 mcg Q5M PRN IV 03/16/17 10:45 03/16/17 15:45 Carvedilol (Coreg Tab) 25 mg BID PO 03/16/17 21:00 04/15/17 20:59 Clonidine HCl (Catapres Tab) 0.1 mg BID PO 03/16/17 21:00 04/15/17 20:59 Lisinopril (Zestril Tab) 10 mg QAM PO 03/17/17 09:00 04/16/17 08:59 Future Hold Morphine Sulfate (MoRPHine SULFATE INJ) 2 mg Q4HWA PRN IV 03/16/17 12:15 03/30/17 12:14 Morphine Sulfate (MoRPHine SULFATE INJ) 4 mg Q4HWA PRN IV 03/16/17 12:15 03/30/17 12:14 Potassium Chloride/Dextrose/ Sod Cl 1,000 ml @ 100 mls/hr Q10H IV 03/16/17 14:45 03/17/17 12:02 03/16/17 14:52 100 MLS/HR Vancomycin HCl 1250 mg/Sodium Chloride 275 ml @ 125 mls/hr Q12H IV 03/16/17 22:00 03/17/17 00:11 Oxycodone HCl (Roxicodone Immediate Rel Tab) 1 TABLET FOR PAIN RATING... Q4H PRN PO 03/16/17 12:15 03/30/17 12:14 Acetaminophen (Tylenol Tab) 1,000 mg Q8 PO 03/16/17 22:00 04/15/17 21:59 Magnesium Hydroxide (Milk Of Magnesia Susp) 30 ml Q6H PRN PO 03/16/17 12:15 04/15/17 12:14 Bisacodyl (Dulcolax Supp) 10 mg DAILY PRN CO 03/16/17 12:15 04/15/17 12:14 Senna (Senokot Tab) 17.2 mg HS PO 03/16/17 21:00 04/15/17 20:59 Docusate Sodium (coLACE CAP) 100 mg BID PO 03/16/17 21:00 04/15/17 20:59 Al Hydrox/Mg Hydrox/Simethicone (Maalox Max Susp) 15 ml Q4H PRN PO 03/16/17 12:15 04/15/17 12:14 Multivitamins (Multivitamin Tab) 1 tab QAM PO 03/17/17 09:00 04/16/17 08:59 Ondansetron HCl (Zofran Inj) 4 mg Q6H PRN IV 03/16/17 12:15 04/15/17 12:14 Pantoprazole Sodium (Protonix Tab) 40 mg QAM PO 03/17/17 09:00 04/16/17 08:59 Tramadol HCl (Ultram Tab) 1 tablet for pain rating... Q4H PRN PO 03/16/17 12:15 04/15/17 12:14 Aspirin (Ecotrin Tab) 81 mg BID PO 03/16/17 21:00 04/15/17 20:59 Labetalol HCl (Normodyne IV) 5 mg Q5M PRN IV 03/16/17 12:45 03/16/17 15:45 Hydralazine HCl (HydrALAZINE INJ) 10 mg Q6H PRN IV. 03/16/17 15:30 04/15/17 15:29 Ferrous Sulfate (Feosol Tab) 325 mg BIDM PO 03/16/17 17:45 04/15/17 17:44 Review of Systems See HPI for pertinent positives and negatives. All other systems reviewed and negative. Physical Exam Date Time Temp Pulse Resp B/P (MAP) Pulse Ox O2 Delivery O2 Flow Rate FiO2 03/16/17 14:30 66 18 192/84 (120) 99 Nasal Cannula 2.0 03/16/17 14:00 36.4 55 16 177/54 (95) 99 Nasal Cannula 2.0 03/16/17 14:00 Nasal Cannula 2.0 03/16/17 13:30 36.5 56 16 156/68 97 Nasal Cannula 2 03/16/17 13:20 36.5 56 16 175/70 97 Nasal Cannula 2 03/16/17 13:10 36.5 57 16 171/71 97 Nasal Cannula 2 03/16/17 13:00 36.5 56 16 169/74 97 Nasal Cannula 2 03/16/17 12:50 53 16 172/76 97 Nasal Cannula 2 03/16/17 12:40 65 16 186/80 97 Nasal Cannula 2 03/16/17 12:30 64 16 188/70 100 Nasal Cannula 2 03/16/17 12:20 66 16 180/78 100 Oxymask 10 03/16/17 12:10 66 16 189/82 99 Oxymask 10 03/16/17 12:01 37. 66 16 169/83 99 Oxymask 10 03/16/17 09:32 36.7 61 20 208/87 96 Room Air General appearance: Well-developed, well-nourished, no apparent distress Head: Normocephalic, atraumatic Eyes: Normal inspection, PERRL, EOMI ENT: Normal ENT inspection, hearing grossly normal, pharynx normal Neck: Supple, no JVD, trachea midline Respiratory/Chest: Lungs clear to auscultation, normal breath sounds, no respiratory distress Cardiovascular: Regular rate & rhythm, no gallop, no murmur Abdomen/GI: Normal bowel sounds, non-tender, soft Extremities/Musculoskeletal: Normal inspection, no calf tenderness, no pedal edema Neurological/Psych: Alert, normal mood/affect, oriented x 3 Skin: Normal color, warm/dry, no rash Laboratory Results Last 24 Hours Test 03/16/17 15:22 Assessment & Plan 76 y/o female with a history of HTN and iron deficiency anemia who presents s/p R TKA with Dr. Guy on 03/16 for medical management. S/p R TKA--POD #0 -Pain management, DVT prophylaxis, and PT/OT as per primary team -Hypertensive, otherwise AVSS. Denies pain HTN--BP 192/84 -Hydralazine 10 mg IV x 1 now and recheck BP -Hold lisinopril and HCTZ until renal function checked/stable -Continue Coreg 25 mg PO BID, clonidine 0.1 mg PO BID -Cover with hydralazine 10 mg IV q6h prn SBP >180 YARA -CBC pending -Continue ferrous sulfate BID Code Status -Level I, FULL RESUSCITATION STATUS Thank you for this consultation. We will continue to follow. Resident Physician Supervision Note: Pt seen/examined independently. I discussed the case with the PA and agree with the findings and plan as documented in the note. Any exceptions or clarifications are listed here: 76 y/o F Hx HTN and iron deficiency anemia - s/p R TKA Pt feels well following surgery - denies any pain, SOB, N/V - states she did not have pain following previous surgery AAO x 3 S1,2 R CTAB, NT, ND NT, ND No CCE P: No additional pain control needed HTN to be treated with Coreg and Hydralazine pending AM labs - can resume HCTZ/ STEPHON based on result and BP Med will follow pending DC Documented By: Roberto Granado
[2017-03-16] MEDS ORDERED: HydrALAZINE HCL 20 MG/ML VIAL IV. ONE (15:45)
[2017-03-16 16:03] LABS: HEMATOCRIT 29.5 % (37-47); MEAN CELL VOLUME 88.9 fL (80-100); MEAN CORPUSCULAR HEMOGLOBIN 28.6 pg (25-34); MEAN CORPUSCULAR HGB CONC 32.2 g/dl (32-36); MEAN PLATELET VOLUME 10.1 fL (7.4-10.4); PLATELET COUNT 216 K/uL (130-400); RED BLOOD COUNT 3.32 M/uL (4.2-5.4); WHITE BLOOD COUNT 9.21 K/uL (4.8-10.8)
[2017-03-16 16:38] LABS: BUN/CREATININE RATIO 20.9 (10-20); CALCIUM 8.4 mg/dl (8.5-10.1); CREATININE 1.1 mg/dl (0.60-1.20); POTASSIUM 4.2 mmol/L (3.5-5.1)
[2017-03-16] MEDS ORDERED: FERROUS GLUCONATE 324 MG TAB PO SCH (17:45)
[2017-03-16] MEDS: FERROUS SULFATE 325 MG TAB PO SCH (18:18)
[2017-03-16] MEDS: DOCUSATE SODIUM 100 MG CAP PO SCH (21:28)
[2017-03-16] MEDS: CLONIDINE HCL 0.1 MG TAB PO SCH (21:29)
[2017-03-16] MEDS: ASPIRIN 81 MG ECTAB PO SCH (21:29)
[2017-03-16] MEDS: CARVEDILOL 25 MG TAB PO SCH (21:30)
[2017-03-16] MEDS: SENNA 8.6 MG TAB PO SCH (21:30)
[2017-03-16] MEDS: ACETAMINOPHEN 500 MG TAB PO SCH (21:31)
[2017-03-16] MEDS ORDERED: VANCOMYCIN INJ 1,250 MG in SODIUM CHLORIDE 0.9% 250ML 250 ML IV SCH (22:00)
[2017-03-17] VITALS (11 sets, daily range): BP systolic 154–195; BP diastolic 67–80; PULSE 59–74; TEMP 36.4–36.7; O2SAT 93–98
[2017-03-17] MEDS: D5W AND 1/2NSS + 20MEQ KCL 1,000 ML IV SCH ×2 (00:31→12:53)
[2017-03-17] MEDS: ACETAMINOPHEN 500 MG TAB PO SCH ×3 (05:46→22:03)
[2017-03-17 06:19] LABS: HEMATOCRIT 23.5 % (37-47); MEAN CORPUSCULAR HGB CONC 31.5 g/dl (32-36); MEAN PLATELET VOLUME 10.1 fL (7.4-10.4); PLATELET COUNT 211 K/uL (130-400); RED BLOOD COUNT 2.64 M/uL (4.2-5.4); WHITE BLOOD COUNT 13.17 K/uL (4.8-10.8)
--- NOTE | 2017-03-17 06:40 | Clinical Documentation Query ---
CLINICAL DOCUMENTATION QUERY 76-y/o female who has undergone right TKR. POD# H/H had fallen to 7.4/23.5. In your clinical opinion is this patient being managed for: (x ) Acute blood loss anemia treated with IVF's, IM consult, T&C, and daily CBC's. ( ) Not Agree ( ) Other explanation of clinical findings (Please Explain) ( ) Unable to determine (Please Define) ( ) Need to Discuss The medical record reflects the following clinical findings, treatment, and risk factors. Clinical Indicators: Hgb 7.4, Hct 23.5, Hemovac output thus far 250 ml's. Treatment: IVF's, IM consult, and daily CBC's Risk Factors: Age, major joint replacement, Please clarify and document your clinical opinion in the progress notes and discharge summary. Terms such as "probable", "suspected", "likely", "questionable", "possible", or "still to be ruled out" are acceptable. IF IN AGREEMENT, YOU MUST DOCUMENT ABOVE DIAGNOSTIC STATEMENT IN DAILY PROGRESS NOTES AND DISCHARGE SUMMARY. This document is not part of the patient's record. Thank You, Richie Alamo, RN [phone]
[2017-03-17 06:52] LABS: BUN/CREATININE RATIO 22.7 (10-20); CALCIUM 7.9 mg/dl (8.5-10.1); CREATININE 1.5 mg/dl (0.60-1.20); POTASSIUM 4.4 mmol/L (3.5-5.1)
--- NOTE | 2017-03-17 07:01 | Orthopedic Progress Note ---
Orthopedic Progress Note Date of Service Mar 17, 2017. Subjective Post OP Day: 1 (s/p Right TKA) Reports: feeling well, pain controlled w PO medications, Denies: complaints, chest pain, SOB, nausea / vomiting, light headedness, calf pain Objective calves soft nontender, N/V intact, capillary refill less than 2 sec., dressing C /D/I, A&O x3, toes mobile, hemovac drainage (250cc/8 hours) Date Time Temp Pulse Resp B/P (MAP) Pulse Ox O2 Delivery O2 Flow Rate FiO2 03/17/17 02:34 36.7 67 16 159/76 (103) 95 Room Air 03/16/17 23:50 Room Air 03/16/17 23:36 36.6 64 18 135/62 (86) 94 Room Air 03/16/17 20:20 36.9 77 18 151/62 (91) 92 Room Air 03/16/17 16:00 153/76 (101) 03/16/17 16:00 95 Room Air 03/16/17 15:30 36.7 69 16 162/81 (108) 99 Nasal Cannula 3.0 03/16/17 14:30 66 18 192/84 (120) 99 Nasal Cannula 2.0 03/16/17 14:00 36.4 55 16 177/54 (95) 99 Nasal Cannula 2.0 03/16/17 14:00 Nasal Cannula 2.0 03/16/17 13:30 36.5 56 16 156/68 97 Nasal Cannula 2 03/16/17 13:20 36.5 56 16 175/70 97 Nasal Cannula 2 03/16/17 13:10 36.5 57 16 171/71 97 Nasal Cannula 2 03/16/17 13:00 36.5 56 16 169/74 97 Nasal Cannula 2 03/16/17 12:50 53 16 172/76 97 Nasal Cannula 2 03/16/17 12:40 65 16 186/80 97 Nasal Cannula 2 03/16/17 12:30 64 16 188/70 100 Nasal Cannula 2 03/16/17 12:20 66 16 180/78 100 Oxymask 10 03/16/17 12:10 66 16 189/82 99 Oxymask 10 03/16/17 12:01 37. 66 16 169/83 99 Oxymask 10 03/16/17 09:32 36.7 61 20 208/87 96 Room Air Laboratory Results 24 Hours: Test 03/16/17 15:46 03/17/17 06:07 Hematocrit 29.5 % 23.5 % Hemoglobin 9.5 g/dL 7.4 g/dL Assessment & Plan Assessment: POD #1 s/p Right TKA -pt/ot -dvt proph with carly/scd/asa -plan for d/c home with OPPT -prevena for 7 days post-op anemia- currently asymptomatic, will cont to observe. recheck H/H in am. HTN Discharge Planning Discharge Planning: home with oppt DVT Prophylaxis: TEDs, SCDs, ASA Therapy: Physical Therapy
--- NOTE | 2017-03-17 07:28 | Discharge Instructions ---
Discharge Instructions Date of Service Mar 17, 2017. Admission Reason for Admission: Unilateral Primary Osteoarthritis Right Knee Discharge Discharge Diagnosis / Problem: right total knee replacement Discharge Goals Goal(s): Decrease discomfort, Improve function, Increase independence Activity Recommendations Activity Limitations: as noted below Weightbearing Status: Right weightbearing (as tolerated) . Instructions / Follow-Up Instructions / Follow-Up ACTIVITY RECOMMENDATIONS: SELF CARE INSTRUCTIONS AFTER TOTAL KNEE REPLACEMENT A. You may need to continue a physical therapy program after discharge from the hospital. There are several options available to you. Your doctor will assist you in selecting the best one for you. 1. An out-patient facility 2 to 3 times a week for therapy or home therapy. 2. Continue working on all exercises taught to you in the hospital. Your goals should be to increase bending of your knee to 90 degrees and beyond and to fully straighten your knee. B. You may progress at your own pace from walking with a walker or crutches to a cane; then to no assistive devices. C. Make walking a part of your daily routine. Be up as much as comfortable with rest periods throughout the day. Rest with leg elevation is very important. Use the ice wrap frequently for the first 3-4 weeks. D. There are no restrictions on activities. You may ride in a car, shop, participate in corset maker and all social activities. E. Wear the long elastic stockings (JOSELO hose) 20 hours a day for 2 weeks after surgery. They can be removed several times a day for laundering and for a bath. F. You may shower, no tub baths until cleared by your doctor. SPECIAL CARE INSTRUCTIONS: VERY IMPORTANT TO READ AND REVIEW A. There are a few signs you need to watch for after you are home. Call [facility] if you notice any of the followin. Increased severe knee pain. Some pain is expected especially when you exercise. 2. Increased swelling in your leg or knee; pain or swelling of the calf muscle in either lower leg. 3. Any fluid drainage from the incision. 4. Shortness of breath or chest pain. B. Please call [facility] at if you have any concerns or questions about your operation or recovery. The doctor or his nurse will return your call promptly. C. You must take antibiotics before dental work, bladder, bowel or other surgery. Your doctor will provide you with a permanent care to carry describing this precaution. IMPORTANT: * REMEMBER TO TAKE ASPIRIN, 81 MG, TWICE DAILY FOR 4 WEEKS UNLESS OTHERWISE DIRECTED. THIS IS YOUR BLOOD THINNER. * HIGH RISK PATIENTS MAY BE PRESCRIBED A STRONGER BLOOD THINNER. THIS WILL BE PROVIDED AT DISCHARGE. * CALL IF INCREASED PAIN, REDNESS, DRAINAGE OR FEVER GREATER THAT 101. * WEAR JOSELO HOSE 20 HOURS PER DAY FOR 2 WEEKS. * Prevena- This is a large suction dressing covering your incision. This will help pull any excess drainage from the wound and allow your incision to heal properly. You may shower with this if you can keep the unit outside of the shower. If any bleeding or leakage is noted please call your doctor's office. This will remain on your incision for 7 days and then should be removed. This can be done yourself or by the home nursing staff if applicable. The entire unit is disposable once removed. Once removed, keep incision clean and dry. If redness or drainage is noted, please call your surgeon. FOLLOW UP VISIT: If appointment is not already scheduled: Please call [facility] to make a follow-up appointment for 2 weeks after your surgery at . Current Hospital Diet Patient's current hospital diet: AHA Diet (Heart Healthy) Discharge Diet Recommended Diet: AHA Diet (Heart Healthy) Procedures Procedures Performed: Right Total Knee Arthroplasty utilizing [employer] journey 2 patient matched total knee arthroplasty size 3 femur 3 tibia 12 Mek[place] 32 oval patella Pending Studies Studies pending at discharge: no Laboratory Results Hemoglobin A1c Test 12/20/16 14:05 Range/Units Estimated Average Glucose 114 mg/dl Hemoglobin A1c 5.6 4.5-5.6 % Medical Emergencies . Who to Call and When: Medical Emergencies: If at any time you feel your situation is an emergency, please call 911 immediately. . Non-Emergent Contact Non-Emergency issues call your: Primary Care Provider, Surgeon . "Provider Documentation" section prepared by Rd Gonzalez. . VTE Core Measure Inpt VTE Proph given/why not?: Other Anticoagulation (ASA 81mg po bid x 1 month ), T.E.D. Stockings, SCD's [place] Drug Monitoring Program Search Results: patient reviewed within database, no issues identified
[2017-03-17] MEDS ORDERED: LISINOPRIL 10 MG TAB PO SCH (09:00)
[2017-03-17] MEDS: CLONIDINE HCL 0.1 MG TAB PO SCH ×2 (09:21→22:01)
[2017-03-17] MEDS: FERROUS SULFATE 325 MG TAB PO SCH ×2 (09:21→17:56)
[2017-03-17] MEDS: CARVEDILOL 25 MG TAB PO SCH ×2 (09:22→22:02)
[2017-03-17] MEDS: MULTIVITAMIN TAB PO SCH (09:22)
[2017-03-17] MEDS: PANTOprazole SOD 40 MG TAB PO SCH (09:22)
[2017-03-17] MEDS: DOCUSATE SODIUM 100 MG CAP PO SCH ×2 (09:22→21:00)
[2017-03-17] MEDS: ASPIRIN 81 MG ECTAB PO SCH ×2 (09:22→22:02)
--- NOTE | 2017-03-17 10:06 | Progress Note ---
Subjective Date of Service: Mar 17, 2017. Subjective Pt evaluation today including: conversation w/ patient, physical exam, lab review, review of inpatient medication list Pain: controlled PO Intake: adequate Voiding: no voiding problems patient eating and drinking well, no CP or SOB, no nausea doing well with therapy reviewed labs, Cr up to 1.5, discussed with patient, making adequate urine Hb down to 7.4 Review of Systems Constitutional: + weakness Musculoskeletal: + joint pain (right knee) All Other Systems: Reviewed and Negative Medications Current Inpatient Medications Medications (Trade) Dose Ordered Sig/Agatha Route Start Time Stop Time Status Last Admin Dose Admin Carvedilol (Coreg Tab) 25 mg BID PO 03/16/17 21:00 04/15/17 20:59 03/17/17 09:22 25 MG Clonidine HCl (Catapres Tab) 0.1 mg BID PO 03/16/17 21:00 04/15/17 20:59 03/17/17 09:21 0.1 MG Lisinopril (Zestril Tab) 10 mg QAM PO 03/17/17 09:00 04/16/17 08:59 Future Hold Morphine Sulfate (MoRPHine SULFATE INJ) 2 mg Q4HWA PRN IV 03/16/17 12:15 03/30/17 12:14 Morphine Sulfate (MoRPHine SULFATE INJ) 4 mg Q4HWA PRN IV 03/16/17 12:15 03/30/17 12:14 Potassium Chloride/Dextrose/ Sod Cl 1,000 ml @ 100 mls/hr Q10H IV 03/16/17 14:45 03/17/17 12:02 03/17/17 00:31 100 MLS/HR Oxycodone HCl (Roxicodone Immediate Rel Tab) 1 TABLET FOR PAIN RATING... Q4H PRN PO 03/16/17 12:15 03/30/17 12:14 Acetaminophen (Tylenol Tab) 1,000 mg Q8 PO 03/16/17 22:00 04/15/17 21:59 03/17/17 05:46 1,000 MG Magnesium Hydroxide (Milk Of Magnesia Susp) 30 ml Q6H PRN PO 03/16/17 12:15 04/15/17 12:14 Bisacodyl (Dulcolax Supp) 10 mg DAILY PRN [place] 03/16/17 12:15 04/15/17 12:14 Senna (Senokot Tab) 17.2 mg HS PO 03/16/17 21:00 04/15/17 20:59 03/16/17 21:30 17.2 MG Docusate Sodium (coLACE CAP) 100 mg BID PO 03/16/17 21:00 04/15/17 20:59 03/17/17 09:22 100 MG Al Hydrox/Mg Hydrox/Simethicone (Maalox Max Susp) 15 ml Q4H PRN PO 03/16/17 12:15 04/15/17 12:14 Multivitamins (Multivitamin Tab) 1 tab QAM PO 03/17/17 09:00 04/16/17 08:59 03/17/17 09:22 1 TAB Ondansetron HCl (Zofran Inj) 4 mg Q6H PRN IV 03/16/17 12:15 04/15/17 12:14 Pantoprazole Sodium (Protonix Tab) 40 mg QAM PO 03/17/17 09:00 04/16/17 08:59 03/17/17 09:22 40 MG Tramadol HCl (Ultram Tab) 1 tablet for pain rating... Q4H PRN PO 03/16/17 12:15 04/15/17 12:14 Aspirin (Ecotrin Tab) 81 mg BID PO 03/16/17 21:00 04/15/17 20:59 03/17/17 09:22 81 MG Hydralazine HCl (HydrALAZINE INJ) 10 mg Q6H PRN IV. 03/16/17 15:30 04/15/17 15:29 Ferrous Sulfate (Feosol Tab) 325 mg BIDM PO 03/16/17 17:45 04/15/17 17:44 03/17/17 09:21 325 MG Objective Vital Signs Date Time Temp Pulse Resp B/P (MAP) Pulse Ox O2 Delivery O2 Flow Rate FiO2 03/17/17 07:21 36.4 66 16 176/75 (108) 93 Room Air 03/17/17 02:34 36.7 67 16 159/76 (103) 95 Room Air 03/16/17 23:50 Room Air 03/16/17 23:36 36.6 64 18 135/62 (86) 94 Room Air 03/16/17 20:20 36.9 77 18 151/62 (91) 92 Room Air 03/16/17 16:00 153/76 (101) 03/16/17 16:00 95 Room Air 03/16/17 15:30 36.7 69 16 162/81 (108) 99 Nasal Cannula 3.0 03/16/17 14:30 66 18 192/84 (120) 99 Nasal Cannula 2.0 03/16/17 14:00 36.4 55 16 177/54 (95) 99 Nasal Cannula 2.0 03/16/17 14:00 Nasal Cannula 2.0 03/16/17 13:30 36.5 56 16 156/68 97 Nasal Cannula 2 03/16/17 13:20 36.5 56 16 175/70 97 Nasal Cannula 2 03/16/17 13:10 36.5 57 16 171/71 97 Nasal Cannula 2 03/16/17 13:00 36.5 56 16 169/74 97 Nasal Cannula 2 03/16/17 12:50 53 16 172/76 97 Nasal Cannula 2 03/16/17 12:40 65 16 186/80 97 Nasal Cannula 2 03/16/17 12:30 64 16 188/70 100 Nasal Cannula 2 03/16/17 12:20 66 16 180/78 100 Oxymask 10 03/16/17 12:10 66 16 189/82 99 Oxymask 10 03/16/17 12:01 37. 66 16 169/83 99 Oxymask 10 Physical Exam General Appearance: no apparent distress, + obese Eyes: normal inspection, EOMI, sclerae normal Neck: supple, no adenopathy, no JVD, trachea midline Respiratory/Chest: chest non-tender, lungs clear, normal breath sounds, no respiratory distress, no accessory muscle use Cardiovascular: regular rate, rhythm, no edema, no gallop, no JVD, no murmur Abdomen: normal bowel sounds, non tender, soft, no organomegaly Extremities: no pedal edema, no calf tenderness, normal capillary refill, pelvis stable, + pertinent finding (right knee swollen, tender, decreased ROM) 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, no motor/sensory deficits, alert, normal mood/affect, oriented x 3 Skin: normal color, warm/dry, no rash Laboratory Results Last 24 Hours Test 03/16/17 15:46 03/17/17 06:07 White Blood Count 9.21 K/uL 13.17 K/uL Red Blood Count 3.32 M/uL 2.64 M/uL Hemoglobin 9.5 g/dL 7.4 g/dL Hematocrit 29.5 % 23.5 % Mean Corpuscular Volume 88.9 fL 89.0 fL Mean Corpuscular Hemoglobin 28.6 pg 28.0 pg Mean Corpuscular Hemoglobin Concent 32.2 g/dl 31.5 g/dl RDW Standard Deviation 50.1 fL 50.7 fL RDW Coefficient of Variation 15.3 % 15.5 % Platelet Count 216 K/uL 211 K/uL Mean Platelet Volume 10.1 fL 10.1 fL Sodium Level 144 mmol/L 142 mmol/L Potassium Level 4.2 mmol/L 4.4 mmol/L Chloride Level 111 mmol/L 111 mmol/L Carbon Dioxide Level 25 mmol/L 24 mmol/L Anion Gap 8.0 mmol/L 7.0 mmol/L Blood Urea Nitrogen 23 mg/dl 34 mg/dl Creatinine 1.10 mg/dl 1.50 mg/dl Est Creatinine Clear Calc Drug Dose 45.3 ml/min 33.2 ml/min Estimated GFR () 56.1 38.5 Estimated GFR (Non- 48.4 33.3 BUN/Creatinine Ratio 20.9 22.7 Random Glucose 173 mg/dl 174 mg/dl Calcium Level 8.4 mg/dl 7.9 mg/dl Assessment and Plan 76 y/o female with a history of HTN and iron deficiency anemia who presents s/p R TKA with Dr. Guy on 03/16 for medical management. S/p R TKA--POD #1 -Pain management, DVT prophylaxis, and PT/OT as per primary team -BP up slightly, otherwise vitals stable - breathing well, no hypoxia ANNETTE, prerenal: Cr up to 1.5 from 1.0 - will repeat BMP at 1400, continue fluids, hold STEPHON and HCTZ - making adequate urine, voiding well Acute blood loss anemia from surgery - Hb down to 7.4, BP elevated, patient feels well - will repeat H/H at 1400, type and cross and hold - patient would like to avoid a transfusion if possible HTN-- SBP still elevated in 170's, can use Hydralazine PRN - continue to hold lisinopril and HCTZ since Cr up to 1.5 -Continue Coreg 25 mg PO BID, clonidine 0.1 mg PO BID Iron deficiency anemia, chronic -CBC pending -Continue ferrous sulfate BID Code Status -Level I, FULL RESUSCITATION STATUS will follow up on labs this afternoon, continue to follow with you
--- NOTE | 2017-03-17 10:55 | Anesthesiology Progress Note ---
Anesthesia Post Op Note Date & Time Mar 17, 2017 at 10:55 Vital Signs Pain Intensity: 2.0 Vital Signs Past 12 Hours Date Time Temp Pulse Resp B/P (MAP) Pulse Ox O2 Delivery O2 Flow Rate FiO2 03/17/17 10:27 64 98 03/17/17 07:30 Room Air 03/17/17 07:21 36.4 66 16 176/75 (108) 93 Room Air 03/17/17 02:34 36.7 67 16 159/76 (103) 95 Room Air 03/16/17 23:50 Room Air 03/16/17 23:36 36.6 64 18 135/62 (86) 94 Room Air Notes Mental Status: alert / awake / arousable, participated in evaluation Pt Amnestic to Procedure: Yes Nausea / Vomiting: adequately controlled Pain: adequately controlled Airway Patency, RR, SpO2: stable & adequate BP & HR: stable & adequate Hydration State: stable & adequate Neuraxial Anesthesia: was administered, sensory block resolved Anesthetic Complications: no major complications apparent
[2017-03-17 14:22] LABS: HEMATOCRIT 22.7 % (37-47)
[2017-03-17 14:47] LABS: CALCIUM 8.6 mg/dl (8.5-10.1); CREATININE 1.4 mg/dl (0.60-1.20); POTASSIUM 4.4 mmol/L (3.5-5.1)
[2017-03-17] MEDS: HydrALAZINE HCL 20 MG/ML VIAL IV. PRN (16:32)
[2017-03-17] MEDS: SENNA 8.6 MG TAB PO SCH (21:00)
[2017-03-18] VITALS (21 sets, daily range): BP systolic 156–202; BP diastolic 71–94; PULSE 58–85; TEMP 36.2–36.9; O2SAT 92–97
[2017-03-18] MEDS: HydrALAZINE HCL 20 MG/ML VIAL IV. PRN ×2 (04:02→12:26)
[2017-03-18] MEDS: ACETAMINOPHEN 500 MG TAB PO SCH ×3 (05:42→22:10)
[2017-03-18] MEDS: CLONIDINE HCL 0.1 MG TAB PO SCH ×2 (07:31→22:11)
[2017-03-18] MEDS: DOCUSATE SODIUM 100 MG CAP PO SCH ×2 (07:33→21:00)
[2017-03-18] MEDS: ASPIRIN 81 MG ECTAB PO SCH ×2 (08:23→22:10)
[2017-03-18] MEDS: FERROUS SULFATE 325 MG TAB PO SCH ×2 (08:23→18:13)
[2017-03-18] MEDS: MULTIVITAMIN TAB PO SCH (08:24)
[2017-03-18] MEDS: PANTOprazole SOD 40 MG TAB PO SCH (08:24)
[2017-03-18 08:28] LABS: HEMATOCRIT 19.5 % (37-47)
[2017-03-18] MEDS: CARVEDILOL 25 MG TAB PO SCH ×2 (08:28→22:09)
[2017-03-18] MEDS ORDERED: ONDA8TAB6 PO (08:54)
[2017-03-18] MEDS ORDERED: RXC5 PO (08:54)
[2017-03-18] MEDS ORDERED: SNK PO (08:54)
[2017-03-18] MEDS ORDERED: ASPEC81 PO (08:54)
[2017-03-18] MEDS ORDERED: ACET-1256 PO (08:54)
--- NOTE | 2017-03-18 10:41 | Progress Note ---
Subjective Date of Service: Mar 18, 2017. Subjective Pt evaluation today including: conversation w/ patient, physical exam, lab review, review of inpatient medication list Pain: no pain PO Intake: adequate Voiding: no voiding problems patient feeling well, no pain in knee, ambulating with walker reviewed labs, Hb down to 6.7, patient agrees to transfusion no chest pain, no dyspnea, no nausea Review of Systems Musculoskeletal: + joint pain (knee) All Other Systems: Reviewed and Negative Medications Current Inpatient Medications Medications (Trade) Dose Ordered Sig/Agatha Route Start Time Stop Time Status Last Admin Dose Admin Carvedilol (Coreg Tab) 25 mg BID PO 03/16/17 21:00 04/15/17 20:59 03/18/17 08:28 25 MG Clonidine HCl (Catapres Tab) 0.1 mg BID PO 03/16/17 21:00 04/15/17 20:59 03/18/17 07:31 0.1 MG Lisinopril (Zestril Tab) 10 mg QAM PO 03/17/17 09:00 04/16/17 08:59 Future Hold Morphine Sulfate (MoRPHine SULFATE INJ) 2 mg Q4HWA PRN IV 03/16/17 12:15 03/30/17 12:14 Morphine Sulfate (MoRPHine SULFATE INJ) 4 mg Q4HWA PRN IV 03/16/17 12:15 03/30/17 12:14 Oxycodone HCl (Roxicodone Immediate Rel Tab) 1 TABLET FOR PAIN RATING... Q4H PRN PO 03/16/17 12:15 03/30/17 12:14 Acetaminophen (Tylenol Tab) 1,000 mg Q8 PO 03/16/17 22:00 04/15/17 21:59 03/18/17 05:42 1,000 MG Magnesium Hydroxide (Milk Of Magnesia Susp) 30 ml Q6H PRN PO 03/16/17 12:15 04/15/17 12:14 Bisacodyl (Dulcolax Supp) 10 mg DAILY PRN [place] 03/16/17 12:15 04/15/17 12:14 Senna (Senokot Tab) 17.2 mg HS PO 03/16/17 21:00 04/15/17 20:59 03/16/17 21:30 17.2 MG Docusate Sodium (coLACE CAP) 100 mg BID PO 03/16/17 21:00 04/15/17 20:59 03/17/17 09:22 100 MG Al Hydrox/Mg Hydrox/Simethicone (Maalox Max Susp) 15 ml Q4H PRN PO 03/16/17 12:15 04/15/17 12:14 Multivitamins (Multivitamin Tab) 1 tab QAM PO 03/17/17 09:00 04/16/17 08:59 03/18/17 08:24 1 TAB Ondansetron HCl (Zofran Inj) 4 mg Q6H PRN IV 03/16/17 12:15 04/15/17 12:14 Pantoprazole Sodium (Protonix Tab) 40 mg QAM PO 03/17/17 09:00 04/16/17 08:59 03/18/17 08:24 40 MG Tramadol HCl (Ultram Tab) 1 tablet for pain rating... Q4H PRN PO 03/16/17 12:15 04/15/17 12:14 Aspirin (Ecotrin Tab) 81 mg BID PO 03/16/17 21:00 04/15/17 20:59 03/18/17 08:23 81 MG Hydralazine HCl (HydrALAZINE INJ) 10 mg Q6H PRN IV. 03/16/17 15:30 04/15/17 15:29 03/18/17 04:02 10 MG Ferrous Sulfate (Feosol Tab) 325 mg BIDM PO 03/16/17 17:45 04/15/17 17:44 03/18/17 08:23 325 MG Furosemide 40 mg/ Syringe 4 ml @ 4 mls/min 1200 IV 03/18/17 12:00 03/18/17 16:00 Hydralazine HCl (Apresoline Tab) 25 mg BID PO 03/18/17 21:00 04/17/17 08:59 Objective Vital Signs Date Time Temp Pulse Resp B/P (MAP) Pulse Ox O2 Delivery O2 Flow Rate FiO2 03/18/17 10:15 36.3 75 175/75 96 03/18/17 09:45 36.4 78 18 170/77 96 03/18/17 09:31 36.2 79 20 162/76 95 03/18/17 08:25 80 189/77 (114) 03/18/17 07:30 Room Air 03/18/17 07:19 36.9 85 16 187/78 (114) 92 Room Air 03/18/17 05:45 166/72 (103) 03/18/17 04:01 196/90 (125) 03/17/17 23:58 36.6 74 16 175/75 (108) 96 Room Air 03/17/17 22:30 Nasal Cannula 03/17/17 21:59 74 179/80 (113) 03/17/17 19:17 194/76 (115) 03/17/17 17:12 174/79 (110) 03/17/17 16:53 190/73 (112) 03/17/17 16:30 195/79 (117) 03/17/17 16:10 36.7 59 18 195/73 (113) 96 Room Air 03/17/17 15:26 Room Air 03/17/17 11:35 36.4 62 16 154/75 (101) 95 Room Air Physical Exam General Appearance: no apparent distress, + obese Eyes: normal inspection, EOMI, sclerae normal ENT: normal ENT inspection, hearing grossly normal, pharynx normal Neck: supple, no adenopathy, no JVD, trachea midline Respiratory/Chest: chest non-tender, lungs clear, normal breath sounds, no respiratory distress, no accessory muscle use Cardiovascular: regular rate, rhythm, no edema, no gallop, no JVD, no murmur Abdomen: normal bowel sounds, non tender, soft, no organomegaly Extremities: no pedal edema, no calf tenderness, + pertinent finding (right knee tender, swollen, decreased ROM) 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, no motor/sensory deficits, alert, normal mood/affect, oriented x 3 Skin: normal color, warm/dry, no rash Lymphatic: no adenopathy Laboratory Results Last 24 Hours Test 03/17/17 13:44 03/18/17 06:27 Hemoglobin 7.4 g/dL 6.5 g/dL Hematocrit 22.7 % 19.5 % Sodium Level 141 mmol/L Potassium Level 4.4 mmol/L Chloride Level 110 mmol/L Carbon Dioxide Level 25 mmol/L Anion Gap 7.0 mmol/L Blood Urea Nitrogen 35 mg/dl Creatinine 1.40 mg/dl Est Creatinine Clear Calc Drug Dose 35.6 ml/min Estimated GFR () 41.9 Estimated GFR (Non- 36.2 BUN/Creatinine Ratio 25.0 Random Glucose 132 mg/dl Calcium Level 8.6 mg/dl Assessment and Plan 76 y/o female with a history of HTN and iron deficiency anemia who presents s/p R TKA with Dr. Guy on 03/16 for medical management. S/p R TKA--POD #2 -Pain management, DVT prophylaxis, and PT/OT as per primary team - vitals stable except BP elevated - breathing well, no hypoxia ANNETTE, prerenal: Cr up to 1.5 from 1.0 - Cr 1.4 yesterday afternoon, will repeat later today, stop fluids with plans for transfusion - making adequate urine, voiding well Acute blood loss anemia from surgery - Hb down to 6.7 from 7.4 yesterday, BP elevated, patient feels well - transfuse two units with Lasix 40mg IV in between, repeat H/H one hour after second unit HTN-- SBP still elevated in 170's, can use Hydralazine IV PRN - continue to hold lisinopril and HCTZ since Cr up to 1.4, probably resume tomorrow -Continue Coreg 25 mg PO BID, clonidine 0.1 mg PO BID - Hydralazine 25mg BID, patient actually takes this at home, should be on med rec, will add Iron deficiency anemia, chronic -CBC pending -Continue ferrous sulfate BID Code Status -Level I, FULL RESUSCITATION STATUS keep here today for transfusion, should be medically stable tomorrow AM, will see in the morning
[2017-03-18] MEDS ORDERED: APR/25 PO (10:42)
--- NOTE | 2017-03-18 11:37 | Orthopedic Progress Note ---
Orthopedic Progress Note Date of Service Mar 18, 2017. Subjective Post OP Day: 2 Reports: feeling well, Denies: chest pain, SOB, nausea / vomiting, light headedness, calf pain Additional Notes: PATIENT FEELING WELL WITH NO COMPLAINTS. WERE ACTUALLY DISCUSSING DC PRIOR TO SEEING HER HGB. Objective calves soft nontender, N/V intact, dressing C/D/I (PREVENA), A&O x3, toes mobile Date Time Temp Pulse Resp B/P (MAP) Pulse Ox O2 Delivery O2 Flow Rate FiO2 03/18/17 11:17 36.4 75 16 185/81 97 03/18/17 10:15 36.3 75 175/75 96 03/18/17 09:45 36.4 78 18 170/77 96 03/18/17 09:31 36.2 79 20 162/76 95 03/18/17 08:25 80 189/77 (114) 03/18/17 07:30 Room Air 03/18/17 07:19 36.9 85 16 187/78 (114) 92 Room Air 03/18/17 05:45 166/72 (103) 03/18/17 04:01 196/90 (125) 03/17/17 23:58 36.6 74 16 175/75 (108) 96 Room Air 03/17/17 22:30 Nasal Cannula 03/17/17 21:59 74 179/80 (113) 03/17/17 19:17 194/76 (115) 03/17/17 17:12 174/79 (110) 03/17/17 16:53 190/73 (112) 03/17/17 16:30 195/79 (117) 03/17/17 16:10 36.7 59 18 195/73 (113) 96 Room Air 03/17/17 15:26 Room Air Laboratory Results 24 Hours: Test 03/17/17 13:44 03/18/17 06:27 Hematocrit 22.7 % 19.5 % Hemoglobin 7.4 g/dL 6.5 g/dL Assessment & Plan Assessment: POD #2 s/p Right TKA -pt/ot -dvt proph with carly/scd/asa -plan for d/c home with OPPT -prevena for 7 days post-op anemia- HGB 6.5 TODAY. 2 UNITS PRBCS ORDERED PER MEDICAL SERVICE. WILL RECHECK H&H AFTERWARDS. WILL FOLLOW OTHER LABS. LIKELY DC TUESDAY. WILL NEED TO DOUBLE CHECK CARDIAC/HTN MED CHANGES. HTN Discharge Planning Discharge Planning: home with oppt DVT Prophylaxis: TEDs, SCDs, ASA Therapy: Physical Therapy
[2017-03-18] MEDS ORDERED: FUROSEMIDE INJ 40 MG in SYRINGE 0 ML IV SCH (12:00)
[2017-03-18 12:47] LABS: BUN/CREATININE RATIO 31.3 (10-20); CALCIUM 8.4 mg/dl (8.5-10.1); CREATININE 1.2 mg/dl (0.60-1.20)
[2017-03-18 18:18] LABS: HEMATOCRIT 31.6 % (37-47)
[2017-03-18] MEDS: SENNA 8.6 MG TAB PO SCH (21:00)
[2017-03-19] MEDS: ACETAMINOPHEN 500 MG TAB PO SCH ×2 (05:32→13:43)
[2017-03-19 06:50] VITALS: BP 188/68; PULSE 64; TEMP 36.9; O2SAT 93
[2017-03-19] MEDS: CARVEDILOL 25 MG TAB PO SCH (07:10)
[2017-03-19] MEDS: CLONIDINE HCL 0.1 MG TAB PO SCH (07:10)
--- NOTE | 2017-03-19 07:57 | Orthopedic Progress Note ---
Orthopedic Progress Note Date of Service Mar 19, 2017. Subjective Post OP Day: 3 Reports: feeling well Objective calves soft nontender, N/V intact, dressing C/D/I (Prevena in place), toes mobile Date Time Temp Pulse Resp B/P (MAP) Pulse Ox O2 Delivery O2 Flow Rate FiO2 03/19/17 06:50 36.9 64 15 188/68 (108) 93 Room Air 03/19/17 00:00 Room Air 03/18/17 23:30 36.9 80 16 176/72 (106) 94 Room Air 03/18/17 22:07 76 177/76 (109) 03/18/17 19:25 36.5 64 18 192/94 (126) 96 Room Air 03/18/17 17:39 Room Air 03/18/17 17:00 36.5 65 18 194/82 97 03/18/17 16:41 36.3 62 18 190/76 (114) 96 Room Air 03/18/17 16:00 36.5 64 18 194/82 97 03/18/17 15:30 36.4 63 18 202/80 96 03/18/17 15:00 36.3 61 16 180/79 97 03/18/17 14:45 36.4 58 18 156/76 96 03/18/17 14:25 36.3 62 20 170/79 03/18/17 13:15 36.5 69 16 189/77 95 03/18/17 12:16 36.7 69 189/72 97 03/18/17 11:38 63 184/71 (108) 03/18/17 11:17 36.4 75 16 185/81 97 03/18/17 10:15 36.3 75 175/75 96 03/18/17 09:45 36.4 78 18 170/77 96 03/18/17 09:31 36.2 79 20 162/76 95 03/18/17 08:25 80 189/77 (114) Laboratory Results 24 Hours: Test 03/18/17 18:06 Hematocrit 31.6 % Hemoglobin 10.7 g/dL Assessment & Plan Assessment: POD #3 s/p Right TKA -pt/ot -dvt proph with carly/scd/asa -plan for d/c home with OPPT -prevena for 7 days HTN Discharge Planning Discharge Planning: home with oppt DVT Prophylaxis: TEDs, SCDs, ASA Therapy: Physical Therapy
[2017-03-19] MEDS: DOCUSATE SODIUM 100 MG CAP PO SCH (09:00)
[2017-03-19] MEDS: FERROUS SULFATE 325 MG TAB PO SCH (09:16)
[2017-03-19] MEDS: MULTIVITAMIN TAB PO SCH (09:16)
[2017-03-19] MEDS: PANTOprazole SOD 40 MG TAB PO SCH (09:16)
[2017-03-19] MEDS: ASPIRIN 81 MG ECTAB PO SCH (09:16)
[2017-03-19 09:17] VITALS: BP 158/73
[2017-03-19 10:42] VITALS: BP 158/73; PULSE 64; TEMP 36.9; O2SAT 93
--- NOTE | 2017-03-19 15:07 | Progress Note ---
Subjective Date of Service: Mar 19, 2017. Subjective Pt evaluation today including: conversation w/ patient, conversation w/ family , physical exam, lab review, review of inpatient medication list Pain: no pain PO Intake: adequate Voiding: no voiding problems patient feeling well, ready for D/C reviewed labs, Hb up to 10, Cr at 1.2 Review of Systems All Other Systems: Reviewed and Negative Objective Vital Signs Date Time Temp Pulse Resp B/P (MAP) Pulse Ox O2 Delivery O2 Flow Rate FiO2 03/19/17 10:42 36.9 64 15 93 Room Air 03/19/17 09:17 158/73 (101) 03/19/17 07:05 Room Air 03/19/17 06:50 36.9 64 15 188/68 (108) 93 Room Air 03/19/17 00:00 Room Air 03/18/17 23:30 36.9 80 16 176/72 (106) 94 Room Air 03/18/17 22:07 76 177/76 (109) 03/18/17 19:25 36.5 64 18 192/94 (126) 96 Room Air 03/18/17 17:39 Room Air 03/18/17 17:00 36.5 65 18 194/82 97 03/18/17 16:41 36.3 62 18 190/76 (114) 96 Room Air 03/18/17 16:00 36.5 64 18 194/82 97 03/18/17 15:30 36.4 63 18 202/80 96 Physical Exam General Appearance: WD/WN, no apparent distress Eyes: normal inspection, EOMI, sclerae normal ENT: normal ENT inspection, hearing grossly normal, pharynx normal Neck: supple, no adenopathy, no JVD, trachea midline Respiratory/Chest: chest non-tender, lungs clear, normal breath sounds, no respiratory distress, no accessory muscle use Cardiovascular: regular rate, rhythm, no edema, no gallop, no JVD, no murmur Abdomen: normal bowel sounds, non tender, soft, no organomegaly Extremities: normal range of motion, non-tender, normal inspection, no pedal edema, no calf tenderness 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 Guy on 03/16 for medical management. S/p R TKA--POD #3 -Pain management, DVT prophylaxis, and PT/OT as per primary team - vitals stable except BP elevated - breathing well, no hypoxia ANNETTE, prerenal: Cr up to 1.5 from 1.0 - Cr 1.2 today - making adequate urine, voiding well Acute blood loss anemia from surgery - Hb down to 6.7 yesterday, up to 10 with two units, no signs of bleeding stable for d/c today
--- NOTE | 2017-03-21 14:42 | DISCHARGE SUMMARY ---
DISCHARGE DIAGNOSIS: Degenerative joint disease, right knee. SECONDARY DIAGNOSIS: Hypertension. CONSULTS: LARRY Muñoz/Roberto Granado M.D. COMPLICATIONS: None. PROCEDURES: Right total knee arthroplasty performed by Dr. Deandre Guy on 03/16/2017. BRIEF HISTORY: As dictated in history and physical. HOSPITAL SUMMARY: The patient was admitted on the above-noted date and had the above-noted surgery performed which she tolerated well. Postoperatively, [facility] hospitalist team was consulted for medical management and continued to follow the patient during her stay. By her first postoperative day, she was feeling well and pain was controlled. She had no complaints. Calves were soft, nontender, neurovascularly intact. Cap refill is less than 2 seconds. Dressings clean, dry and intact. Toes were mobile. Vital signs were stable. She was afebrile and hemoglobin had dropped to 7.4. She was currently asymptomatic and plans will be to recheck an H&H later that day. The second H&H draw on the did show continued hemoglobin was 7.4. Plans were to recheck the following morning. By 03/18/2017 patient was feeling well. She had no knee pain. She was ambulating with a walker. Hemoglobin dropped down to 6.7 and she was transfused 2 units of PRBCs. The rest of her stay was essentially uneventful and by 03/19/2017 she was feeling well. Calves were soft and nontender, neurovascularly intact. Dressings clean, dry and intact. Toes were mobile. Vital signs were stable. She did have increased SBP noted at times and was treated accordingly per medicine service. Hemoglobin was 03/19/2017 posttransfusion. She was progressing well with her physical therapy and it was felt she could be discharged to home. For further review, please see chart. LAB AND X-RAY DATA: As per chart. DISCHARGE INSTRUCTIONS: The patient was discharged to home in satisfactory condition on 03/19/2017. DIET: Regular heart healthy. ACTIVITY: Weightbearing as tolerated right lower extremity. Follow TK instruction sheets and special care instructions as noted. Follow up with Dr. Guy in 2 weeks. The patient to call for appointment if one has not been made for you. DISCHARGE MEDICATIONS: Aspirin 81 mg p.o. b.i.d., hydralazine 25 mg p.o. b.i.d., oxycodone 5-10 mg p.o. q. 4 hours p.r.n., senna 17.2 mg at bedtime. Resume home meds as listed. After 30 days of taking the 81 mg tablet of aspirin, please resume regular aspirin dosage thereafter.
== END 2017-03-19 14:03 | disposition home or self-care (01) | DRG 470 ==
LOC: C.ACU 08:14 → C.3E 09:33 → ENRESERV 13:24
PROVIDERS: ADMIT Orthopaedic Surgery; ATTEND Orthopaedic Surgery
PROC: 0SRC0J9 Replacement of Right Knee Joint with Synthetic Substitute, Cemented, Open Approach (ICD-10-PCS; principal; 2017-03-16 10:15)
DX: M17.11 Unilateral primary osteoarthritis, right knee (principal); N17.9 Acute kidney failure, unspecified; D62 Acute posthemorrhagic anemia; I10 Essential (primary) hypertension; D50.9 Iron deficiency anemia, unspecified; Z96.652 Presence of left artificial knee joint; Z79.82 Long term (current) use of aspirin; Z79.899 Other long term (current) drug therapy